=== PATIENT | male | born 1945 | race Caucasian/White ===

== ENCOUNTER 2019-11-23 16:21 | Inpatient (IN) ==
[2019-11-23] MEDS ORDERED: ACETAMINOPHEN 500 MG TAB PO PRN (16:32)
[2019-11-23] MEDS ORDERED: ONDANSETRON INJ 2 MG/ML 2 ML VIAL IV PRN (16:32)
[2019-11-23] MEDS ORDERED: PROMETHAZINE HCL 12.5 MG in SODIUM CHLORIDE 0.9% 50 ML IV PRN (16:32)
[2019-11-23] MEDS ORDERED: METOCLOPRAMIDE HCL INJ 5 MG/ML 2 ML VIAL IV PRN (16:32)
[2019-11-23] MEDS ORDERED: ONDANSETRON 4 MG OD TAB PO PRN (16:32)
[2019-11-23] MEDS ORDERED: HYDROmorphone INJ 0.5 MG/0.5 ML SYR IV PRN (16:32)
[2019-11-23] MEDS ORDERED: LORazepam 1 MG/2 ML VIAL IV PRN (16:32)
[2019-11-23] MEDS ORDERED: LORazepam 1 MG TAB PO PRN (16:32)
[2019-11-23] MEDS ORDERED: HYDROmorphone INJ 1 MG/ML SYRINGE IV PRN (16:32)
[2019-11-23] MEDS ORDERED: TRAMADOL HCL 50 MG TABLET PO PRN (16:32)
[2019-11-23] MEDS ORDERED: PATIENT'S HEIGHT AND/OR WEIGHT NEEDED SCH (17:00)
[2019-11-23] MEDS: LACTATED RINGER'S 1,000 ML IV SCH (17:15)
[2019-11-23 17:34] LABS: Albumin Level 3.7 gm/dl (3.4-5.0); BUN Creatinine Ratio 21.1 (10-20); Calcium 9.2 mg/dl (8.5-10.1); Creatinine Clr Calc Pharmacy 71.3 ml/min; Est GFR (African American) 99.5; Est GFR (Non-African American) 85.8; Hematocrit (blood only) 42.9 % (42-52); Hemoglobin 14.3 g/dL (14.0-18.0); Mean Corpuscular Hemoglobin 30.4 pg (25-34); Mean Corpuscular Hgb Conc 33.3 g/dL (32-36); Mean Corpuscular Volume 91.3 fL (80-100); Platelet Count 300 K/uL (130-400); Potassium 4.3 mmol/L (3.5-5.1); RDW Coefficient of Variation 13.6 % (11.5-14.5); RDW Standard Deviation 44.9 fL (36.4-46.3); White Blood Count 23.78 K/uL (4.8-10.8)
[2019-11-23 17:35] LABS: Basophils # (auto) 0.01 K/uL (0-0.2); Immature Granulocytes # (auto) 0.08 K/uL (0.00-0.02); Immature Granulocytes % (auto) 0.3 %; Lymphocytes # (auto) 1.72 K/uL (1.2-3.4); Lymphocytes % (auto) 7.2 %; Monocytes # (auto) 1.55 K/uL (0.11-0.59); Monocytes % (auto) 6.5 %; Neutrophils # (auto) 20.42 K/uL (1.4-6.5)
[2019-11-23 17:37] LABS: Albumin Globulin Ratio 0.9 (0.9-2); Bilirubin,Total 0.2 mg/dl (0.2-1); Total Protein 7.7 gm/dl (6.4-8.2)
[2019-11-23 17:51] LABS: Partial Thromboplastin Ratio 0.8; Prothrombin Time 10.7 Seconds (9.0-12.0)
--- NOTE | 2019-11-23 18:00 | Consultation ---
Date of Consultation November 23, 2019 Assessment & Plan (1) Cervical spinal cord compression: (2) Left arm weakness: Pt is 74 y/o M with PMH asthma, HTN, dyslipidemia, BPH, hypothyroidism, GERD, anxiety, osteoarthritis seen in medical consultation for preop eval. Pt with left shoulder pain and sudden onset of loss of control of left arm and left arm paresthesias. Seen in ER 11/22/2019 and had unremarkable MRI brain and had MRI cervical spine showing multilevel cervical spondylosis, moderate to severe multilevel central canal stenosis, moderate to severe multilevel neural foraminal stenosis and thinning of the mid cervical cord with small foci of myelomalacia. In ER patient had unremarkable labs including no leukocytosis and patient was given steroids. Patient saw Dr. Faria today and it is planned for ACDF tomorrow Yesterday No leukocytosis, today WBC: 23, pt received 10mg Decadron IV yesterday. No fever/chills, cough, urinary symptoms, N/V or other signs of infection Remaining labs unremarkable Obtain CXR EKG sinus rhythm with 1st degree AV block, no acute ST elevation, no significant change from prior EKG Holding aspirin, pt did have aspirin on 11/23/2019 Revised cardiac risk index score: 0. Would recommend proceeding with surgery Ortho spine on board Anesthesiology consult (3) HTN (hypertension): Continue lisinopril (4) Dyslipidemia: Continue rosuvastatin (5) Asthma: No signs of acute exacerbation Continue home inhalers (6) Hypothyroidism: Continue levothyroxine (7) BPH (benign prostatic hyperplasia): Continue tamsulosin, oxybutynin (8) Anxiety: Continue hydroxyzine as needed (9) GERD (gastroesophageal reflux disease): Continue PPI DVT Prophylaxis -SCDs Full Code as per discussion with pt Follows with Eryn Dunn at [facility] for routine care Pt was seen and care coordinated with Dr Mejia. See addendum Thank you for this consultation. We will follow the patient with you during their hospital stay. You can reach a member of the [facility] Hospitalist Team 02/02 via pager @ [phone]. Supervising Physician Co-Signing Physician Notes I, Dr. Ten Mejia, have seen and evaluate the patient with physician professional nursing assistant and agree with the assessment and plan and would like to comment that on physical exam General: no acute distress, speaking in full sentences Heart: regular rate Lungs: clear to auscultation bilaterally Abdomen: soft, nontender, positive bowel sounds Extremities: no limitations of motion of right upper extremity, left upper extremity the patient can move the hand and fingers but he is not able to lift from the left elbows or from left shoulder Assessment and Plan -primary reason for this consult was for pre-operative risk evaluation. by the Revised Cardiac Risk Index for Pre-Operative Risk, patient does not have high risk as the planned orthopedic procedure involves correcting cervical spinal cord compression as the cause of the left upper extremity weakness (this surgery does not involve intrathoracic or intra abdomen incision), and patient has no history of myocardial infarction or stroke, patient has good renal function, and no diabetes. patient breathing on room air. lungs sound clear to auscultation. Chest X ray ordered to rule out acute lung process. otherwise, orthopedic should be able to proceed with surgery if no objections from anesthesia counsult -agree with management of other medical conditions as documented by physician professional nursing assistant My colleague Dr. Ramos will be following the patient starting on 11/24/2019 History of Present Illness Requesting Physician: Dr Faria Reason for Consultation: Pre-op eval Attending Physician: Osito Faria, DO History of Present Illness Pt is 74 y/o M with PMH asthma, HTN, dyslipidemia, BPH, hypothyroidism, GERD, anxiety, osteoarthritis seen in medical consultation for preop eval. Patient with history neck pain and history right arm p aresthesias however several days ago started with left shoulder pain and sudden onset of loss of control of left arm and left arm paresthesias. Patient was seen in ER 11/22/2019 and had unremarkable MRI brain and had MRI cervical spine showing multilevel cervical spondylosis, greatest from C3-C4 through C5-C6 where there is moderate to severe multilevel central canal stenosis, moderate to severe multilevel neural foraminal stenosis and thinning of the mid cervical cord with small foci of myelomalacia. In ER patient had unremarkable labs including no leukocytosis and patient was given steroids. Patient saw Dr. Faria today and it is planned for ACDF tomorrow. Patient reports history of asthma and uses his albuterol inhaler approximately 3 times a week. He reports that he is fairly active and is able to work outside raking and chopping wood for several hours without any associated chest pain or shortness of breath. Denies fever/chills, diaphoresis, N/V/D/C, HAYNES, dizziness, syncope, vision changes, CP, SOB, orthopnea, palpitations, cough, sore throat, choking, otalgia, rhinorrhea, abdominal pain, extremity edema, rashes, urinary symptoms. No H/O CKD, Stroke, ND, known cardiac disease, diabetes. Denies history of problems with anesthesia in the past Allergies Allergy/AdvReac Type Severity Reaction Status Date / Time No Known Allergies Allergy Unverified 11/22/19 12:46 Home Medications Home Medications Medication Instructions Recorded Confirmed Type albuterol sulfate 1 puff INHALATION Q6H PRN 07/17/19 11/23/19 History ascorbic acid (vitamin C) 500 mg PO QAM 07/17/19 11/23/19 History aspirin [Aspirin Low Dose] 81 mg PO QAM 07/17/19 11/23/19 History budesonide-formoterol 2 puff INHALATION BID 07/17/19 11/23/19 History cyanocobalamin (vitamin B-12) 1,000 mcg PO QAM 07/17/19 11/23/19 History hydrocodone-acetaminophen 1 tab PO Q8H PRN 07/17/19 11/23/19 History levothyroxine 25 mcg PO DAILYBB 07/17/19 11/23/19 History lisinopril 5 mg PO QAM 07/17/19 11/23/19 History omeprazole 20 mg PO QAM 07/17/19 11/23/19 History oxybutynin chloride 5 mg PO HS 07/17/19 11/23/19 History rosuvastatin 40 mg PO HS 07/17/19 11/23/19 History sildenafil 100 mg PO DIRECTED PRN 07/17/19 11/23/19 History tamsulosin 0.4 mg PO HS 07/17/19 11/23/19 History trazodone 25 mg PO HS 07/17/19 11/23/19 History docusate sodium [Colace] 100 mg PO TID 11/22/19 11/23/19 History hydroxyzine HCl 50 mg PO BID PRN 11/22/19 11/23/19 History gabapentin 600 mg PO TID 11/23/19 11/23/19 History Patient History Medical History (Updated 11/23/19 @ 18:10 by Ritu Carnes PA-C) Anxiety Asthma BPH (benign prostatic hyperplasia) Dyslipidemia GERD (gastroesophageal reflux disease) HTN (hypertension) Hypothyroidism Surgical History (Updated 11/23/19 @ 18:10 by Ritu Carnes PA-C) History of carpal tunnel surgery Family History (Updated 11/23/19 @ 18:21 by Ritu Carnes PA-C) Other Coronary heart disease Hypertension Social History (Updated 11/23/19 @ 18:21 by Ritu Carnes PA-C) Preferred Language: [place] Beliefs That Will Affect Care: None Current Living Situation: Spouse Other Information That Helps Us Care for You: No Feels Safe at Home: Yes Safety Concerns: Feels Safe At This Time Smoking Status: Never smoker Hx Alcohol Use: Yes Alcohol type: beer Alcohol Intake Frequency Comment: 2 beers 1-3 times a week Hx Substance Use: No Review of Systems Review of Systems: All systems reviewed & are unremarkable except as noted in HPI & below Physical Exam Physical Exam: General: no distress, WDWN Head: normocephalic, atraumatic Eyes: PERRL, EOM's intact, conjunctiva non-injected, anicteric ENT: normal inspection external ears, nose, mucous membranes moist Neck: supple, trachea midline, non-tender to palpation Lungs: clear, no respiratory distress, no wheezing/rhonchi/rales CV: RRR, no murmur, no pretibial edema Abd: normal BS, soft, non-tender Ext: no cyanosis, no calf tenderness; LUE: pt unable to abduct, limited flexion of wrist, able to move fingers, left clinical investigator strength decreased from right, distal pulses palpable Neuro: A&O x 3, no focal deficits noted, normal affect Skin: warm, dry Results & Data ([facility]) Vital Signs (Past 12 Hours) Vital Signs Temp Pulse Resp BP Pulse Ox 11/23/19 17:03 36.7 C 86 17 161/75 H 91 Laboratory Results Short CBC 11/23/19 Range/Units 16:54 WBC 23.78 H (4.8-10.8) K/uL Hgb 14.3 (14.0-18.0) g/dL Hct 42.9 (42-52) % Plt Count 300 (130-400) K/uL BMP 11/23/19 16:54 Sodium 142 Potassium 4.3 Chloride 111 H Carbon Dioxide 23 BUN 18 Creatinine 0.85 Glucose 127 H Calcium 9.2 Liver Function 11/23/19 Range/Units 16:54 Total Bilirubin 0.2 (0.2-1) mg/dl AST 15 (15-37) U/L ALT 31 (12-78) U/L Alkaline Phosphatase 46 (45-117) U/L Albumin 3.7 (3.4-5.0) gm/dl
[2019-11-23] MEDS ORDERED: ALBUTEROL HFA 8 GM INHALER INH PRN (18:13)
--- NOTE | 2019-11-23 18:46 | XRay Report ---
XR chest 2V PA/lateral CLINICAL HISTORY: Preoperative chest COMPARISON STUDY: July 17, 2019 FINDINGS: The cardiac and mediastinal contours are normal. There is no evidence of focal pulmonary co nsolidation. There is no evidence of failure. No pleural effusions are visualized.[There is a stable opacity at the level of the right cardiophrenic angle, likely representing a fat pad or cardiac phren ic angle cyst. There are minimal basilar atelectatic changes. IMPRESSION: No active disease in the chest. ACT 112: Negative or not required by law. Electronically signed by: Andres Dill M.D. 11/23/2019 6:44 PM
[2019-11-23] MEDS: DOCUSATE SODIUM 100 MG CAP PO SCH (20:14)
[2019-11-23] MEDS: TRAZODONE HCL 50 MG TAB PO SCH (20:15)
[2019-11-23] MEDS: TAMSULOSIN HCL 0.4 MG CAP PO SCH (20:15)
[2019-11-23] MEDS: GABAPENTIN 600 MG TAB PO SCH (20:15)
[2019-11-23] MEDS: OXYBUTYNIN CHLORIDE 5 MG TAB PO SCH (20:15)
[2019-11-23] MEDS: ROSUVASTATIN CALCIUM 20 MG TAB PO SCH (20:15)
[2019-11-23] MEDS: OXYCODONE HCL IR 5 MG TAB (IMMEDIATE RELEASE) PO PRN (20:21)
[2019-11-23] MEDS ORDERED: DOCUSATE SODIUM 100 MG CAP PO SCH (21:00)
[2019-11-24] MEDS: OXYCODONE HCL IR 5 MG TAB (IMMEDIATE RELEASE) PO PRN (05:51)
[2019-11-24] MEDS: LEVOTHYROXINE SODIUM 25 MCG TABLET PO SCH (05:52)
[2019-11-24] MEDS: LACTATED RINGER'S 1,000 ML IV SCH (05:53)
[2019-11-24] MEDS ORDERED: CEFAZOLIN 2000MG 2,000 MG/15 ML SYR IV SCH (06:00)
[2019-11-24] MEDS: lisinopriL 5 MG TAB PO SCH (07:31)
[2019-11-24] MEDS: FLUTICASONE/VILANTEROL 200/25MCG 14 PUFFS/INHALER INH SCH (07:32)
[2019-11-24] MEDS: PANTOprazole 40 MG TAB PO SCH (07:33)
[2019-11-24] MEDS: CYANOCOBALAMIN 500 MCG TABLET (VITAMIN B-12) PO SCH (07:33)
[2019-11-24] MEDS: DOCUSATE SODIUM 100 MG CAP PO SCH ×3 (07:33→21:54)
[2019-11-24] MEDS: GABAPENTIN 600 MG TAB PO SCH ×3 (07:33→21:54)
--- NOTE | 2019-11-24 07:40 | History & Physical Report ---
Date of Service November 24, 2019 Assessment & Plan (1) Myelopathy concurrent with and due to spinal stenosis of cervical region: This time patient has advanced myelopathy and are recommending urgent anterior cervical corpectomy of C4 ACDF of C5-6. Risk benefits pros cons and alternatives were outlined in detail. We will try to have surgery range performed as soon as possible in light of his advanced neurologic deficits. Hopefully we can prevent permanent neurologic sequelae. Present on Admission?: Yes History of Present Illness Chief Complaint: Neck pain with arm numbness and weakness Primary Care Provider: Eryn Dunn PA-C This is a 74-year-old male with a tight chronic numbness in the bilateral upper extremities for several months progressive now to advanced weakness particular affecting the left upper extremity deltoid bicep tricep. This began over the weekend. He was doing quite a bit of work around his home and this may have exacerbated his symptoms. Allergies Allergy/AdvReac Type Severity Reaction Status Date / Time No Known Allergies Allergy Unverified 11/22/19 12:46 Home Medications Home Medications Medication Instructions Recorded Confirmed Type albuterol sulfate 1 puff INHALATION Q6H PRN 07/17/19 11/23/19 History ascorbic acid (vitamin C) 500 mg PO QAM 07/17/19 11/23/19 History aspirin [Aspirin Low Dose] 81 mg PO QAM 07/17/19 11/23/19 History budesonide-formoterol 2 puff INHALATION BID 07/17/19 11/23/19 History cyanocobalamin (vitamin B-12) 1,000 mcg PO QAM 07/17/19 11/23/19 History hydrocodone-acetaminophen 1 tab PO Q8H PRN 07/17/19 11/23/19 History levothyroxine 25 mcg PO DAILYBB 07/17/19 11/23/19 History lisinopril 5 mg PO QAM 07/17/19 11/23/19 History omeprazole 20 mg PO QAM 07/17/19 11/23/19 History oxybutynin chloride 5 mg PO HS 07/17/19 11/23/19 History rosuvastatin 40 mg PO HS 07/17/19 11/23/19 History sildenafil 100 mg PO DIRECTED PRN 07/17/19 11/23/19 History tamsulosin 0.4 mg PO HS 07/17/19 11/23/19 History trazodone 25 mg PO HS 07/17/19 11/23/19 History docusate sodium [Colace] 100 mg PO TID 11/22/19 11/23/19 History hydroxyzine HCl 50 mg PO BID PRN 11/22/19 11/23/19 History gabapentin 600 mg PO TID 11/23/19 11/23/19 History Past Med/Surg History Medical History (Updated 11/24/19 @ 07:39 by Osito Faria DO) Anxiety Asthma BPH (benign prostatic hyperplasia) Dyslipidemia GERD (gastroesophageal reflux disease) HTN (hypertension) Hypothyroidism Surgical History (Updated 11/23/19 @ 18:10 by Ritu Carnes PA-C) History of carpal tunnel surgery Family History (Updated 11/23/19 @ 18:21 by Ritu Carnes PA-C) Other Coronary heart disease Hypertension Social History (Updated 11/23/19 @ 18:21 by Ritu Carnes PA-C) Preferred Language: Cook Islander Beliefs That Will Affect Care: None Current Living Situation: Spouse Other Information That Helps Us Care for You: No Feels Safe at Home: Yes Safety Concerns: Feels Safe At This Time Smoking Status: Never smoker Hx Alcohol Use: Yes Alcohol type: beer Alcohol Intake Frequency Comment: 2 beers 1-3 times a week Hx Substance Use: No Physical Exam Physical Exam: 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 He exhibits almost complete absence of left deltoid and biceps function. Triceps is a 3/5. He has reasonable grasp. He has full function of the right upper extremity. There is sensory deficits to bilateral upper extremities. He does exhibit balance disturbance and is unable to heel and toe walk. He has bilateral Trey signs and brisk lower extremity reflexes. Heart is regular rate and rhythm Patient is alert and oriented Lungs clear to auscultation Results & Data Vital Signs (Past 12 Hours) Vital Signs Temp Pulse Resp BP Pulse Ox 11/24/19 07:26 36.5 C 63 18 150/78 H 97 11/23/19 23:09 36.5 C 73 16 137/74 96 Diagnostic Findings MRI of the cervical spine demonstrate severe spinal stenosis at C3-4 C4-5 and C5-6 with evidence of myelomalacia. Code Status & VTE Plan VTE Prophylaxis Plan VTE Prophylaxis will be ordered: Yes
--- NOTE | 2019-11-24 09:16 | Hospitalist Progress Note ---
Date of Service November 24, 2019 Assessment & Plan (1) Myelopathy concurrent with and due to spinal stenosis of cervical region: Surgical management per Ortho Spine. (2) HTN (hypertension): Continue lisinopril. (3) Asthma: Pulmonary status stable. Albuterol PRN. Incentive spirometry postop. (4) GERD (gastroesophageal reflux disease): Continue PPI. (5) Dyslipidemia: Continue rosuvastatin. (6) Hypothyroidism: Continue levothyroxine. (7) BPH (benign prostatic hyperplasia): Continue tamsulosin. Watch for urinary retention postop. (8) Leukocytosis: WBC 23,780 yesterday. No apparent infection. Probably due to steroids received in ED 11/21. Follow. (9) DVT prophylaxis: Per Ortho protocol. (10) Encounter for consultation: Thank you for this consultation. We will follow the patient with you during their hospital stay. My cell # is [phone]. You can reach a member of the [facility] Medicine Team 02/02 via pager @ [phone]. Admission and Anticipated Discharge Date Admission Date: November 23, 2019 Subjective Recheck for medical management. Patient seen in their room around 0905. Persistent pain & weakness LUE. Scheduled to go to OR today. Review of Systems: Constitutional- no fever. Cardiac- no chest pain. Pulmonary- no cough or SOB. GI- no nausea, vomiting, diarrhea, melena, hematochezia. - no urinary symptoms. Otherwise, as noted above. Physical Exam Constitutional: no acute distress Respiratory: no respiratory distress Auscultation: lungs clear to auscultation bilaterally Cardiovascular: Rate/Rhythm: regular rate and regular rhythm Heart Sounds: no gallop, no murmur and no cardiac rub Vessels: no JVD Extremities: no calf tenderness and no edema Gastrointestinal (Abdomen): normal bowel sounds, soft, nontender, no hepatosplenomegaly Skin: no rashes, warm and dry Neurologic: LUE weakness Psychiatric: Orientation: alert and oriented x 3 Results & Data Results & Data ([facility]) Vital Signs (Past 12 Hours) Vital Signs Temp Pulse Resp BP Pulse Ox 11/24/19 07:26 36.5 C 63 18 150/78 H 97 11/23/19 23:09 36.5 C 73 16 137/74 96
[2019-11-24] MEDS ORDERED: PROPOFOL IV EMULSION 10 MG/ML 20 ML VIAL IV ONE (09:29)
[2019-11-24] MEDS ORDERED: LIDOCAINE HCL 2% 2 ML VIAL/AMP(20MG/ML) INFIL ONE (09:29)
[2019-11-24] MEDS ORDERED: ONDANSETRON INJ 2 MG/ML 2 ML VIAL ONE (09:29)
[2019-11-24] MEDS ORDERED: ROCURONIUM BROMIDE 10 MG/ML 5 ML VIAL ONE (09:29)
[2019-11-24] MEDS ORDERED: MIDAZOLAM HCL 1 MG/ML 2ML VIAL ONE (09:30)
[2019-11-24] MEDS ORDERED: fentaNYL citrate 100 MCG/2 ML VIAL ONE ×2 (09:30→13:30)
--- NOTE | 2019-11-24 09:43 | Anesthesiology Consultation ---
Date of Service November 24, 2019 Assessment & Plan (1) Encounter for pre-operative examination: Chart Review Chart Review: Acceptable Risk for Surgery and Patient NOT seen in Pre Admission Testing Consults Requested none Hospital medicine consult 11/22/2019: EKG sinus rhythm with 1st degree AV block, no acute ST elevation, no significant change from prior EKG Holding aspirin, pt did have aspirin on 11/23/2019 Revised cardiac risk index score: 0. Would recommend proceeding with surgery History Surgery Operation Date: 11/24/19 11:45 Proposed Procedures p C4 Anterior Cervical Corpectomy; C5-C6 Anterior Cervical Discectomy, Spinal Cord Monitoring - Osito Faria DO Height/Weight Height: 5 ft 7 in Weight: 74.8 kg Allergies Allergy/AdvReac Type Severity Reaction Status Date / Time No Known Allergies Allergy Unverified 11/24/19 11:15 Medications Home Medications Medication Instructions Recorded Confirmed Last Taken albuterol sulfate 1 puff INHALATION Q6H PRN 07/17/19 11/23/19 Unknown ascorbic acid (vitamin C) 500 mg PO QAM 07/17/19 11/23/19 11/23/19 aspirin [Aspirin Low Dose] 81 mg PO QAM 07/17/19 11/23/19 11/23/19 budesonide-formoterol 2 puff INHALATION BID 07/17/19 11/23/19 11/23/19 cyanocobalamin (vitamin B-12) 1,000 mcg PO QAM 07/17/19 11/23/19 11/23/19 hydrocodone-acetaminophen 1 tab PO Q8H PRN 07/17/19 11/23/19 11/23/19 levothyroxine 25 mcg PO DAILYBB 07/17/19 11/23/19 11/23/19 lisinopril 5 mg PO QAM 07/17/19 11/23/19 11/23/19 omeprazole 20 mg PO QAM 07/17/19 11/23/19 11/23/19 oxybutynin chloride 5 mg PO HS 07/17/19 11/23/19 11/22/19 rosuvastatin 40 mg PO HS 07/17/19 11/23/19 11/22/19 sildenafil 100 mg PO DIRECTED PRN 07/17/19 11/23/19 Unknown tamsulosin 0.4 mg PO HS 07/17/19 11/23/1911/21/20 trazodone 25 mg PO HS 07/17/19 11/23/19 11/22/19 docusate sodium [Colace] 100 mg PO TID 11/22/19 11/23/19 11/23/19 hydroxyzine HCl 50 mg PO BID PRN 11/22/19 11/23/19 11/22/19 gabapentin 600 mg PO TID 11/23/19 11/23/19 11/23/19 Active Medications Generic Name Dose Route Start Last Admin Trade Name Freq PRN Reason Stop Dose Admin Cyanocobalamin 1,000 mcg 11/24/19 09:00 11/24/19 07:33 Vitamin B-12 PO 12/24/19 08:59 Not Given QAM JUN Docusate Sodium 100 mg 11/23/19 21:00 11/24/19 07:33 Colace PO 12/23/19 20:59 Not Given TID JUN Fluticasone/Vilanterol 1 puffs 11/24/19 09:00 11/24/19 07:32 Breo Ellipta 200/25 Mcg Inh INH 12/24/19 08:59 1 puffs DAILY JUN Administration Gabapentin 600 mg 11/23/19 21:00 11/24/19 07:33 Neurontin PO 12/23/19 20:59 Not Given TID JUN Hydroxyzine HCl 50 mg 11/23/19 18:13 11/23/19 21:50 Vistaril PO 12/23/19 18:12 50 mg BID PRN Administration Anxiety Lactated Ringer's 1,000 mls @ 75 mls/hr 11/23/19 16:45 11/24/19 05:53 Lr IV 12/23/19 16:44 75 mls/hr .[id number] JUN Administration Levothyroxine Sodium 25 mcg 11/24/19 06:30 11/24/19 05:52 Synthroid PO 12/24/19 06:29 25 mcg DAILYBB JUN Administration Lisinopril 5 mg 11/24/19 09:00 11/24/19 07:31 Zestril PO 12/24/19 08:59 5 mg QAM JUN Administration Oxybutynin Chloride 5 mg 11/23/19 21:00 11/23/19 20:15 Ditropan PO 12/23/19 20:59 5 mg HS JUN Administration Oxycodone HCl 5 - 10 mg 11/23/19 16:32 11/24/19 05:51 Roxicodone Immediate Rel PO 12/07/19 16:31 10 mg Q4H PRN Administration Moderate-Severe Pain Pantoprazole Sodium 40 mg 11/24/19 09:00 11/24/19 07:33 Protonix PO 12/24/19 08:59 Not Given QAM JUN Rosuvastatin Calcium 40 mg 11/23/19 21:00 11/23/19 20:15 Crestor PO 12/23/19 20:59 40 mg HS JUN Administration Tamsulosin HCl 0.4 mg 11/23/19 21:00 11/23/19 20:15 Flomax PO 12/23/19 20:59 0.4 mg HS JUN Administration Trazodone HCl 25 mg 11/23/19 21:00 11/23/19 20:15 Desyrel PO 12/23/19 20:59 25 mg HS JUN Administration NPO Date Last Intake of Fluids: 11/23/19 Time Last Intake of Fluids: 23:59 Date Last Intake of Solids: 11/23/19 Time Last Intake of Solids: 23:59 Past Medical History Medical History Anxiety Asthma BPH (benign prostatic hyperplasia) Dyslipidemia GERD (gastroesophageal reflux disease) HTN (hypertension) Hypothyroidism Exercise / Class Metabolic Activity II 4-5 Yardwork/Stairs/Walk up hill Past Family History Family History Other Coronary heart disease Hypertension Past Surgical History Surgical History History of carpal tunnel surgery Past Anesthesia History No Hx of Anesthesia Complications and No Family Hx of Anesthesia Complications History of PONV No Hx of PONV and No Hx of Motion Sickness Social History Smoking Status: Never smoker Do You Dip or Chew Tobacco: No Hx Alcohol Use: Yes Alcohol type: beer alcohol intake frequency: a few times a week Hx Substance Use: No Physical Exam Vital Signs Last Vital Signs Temp 37 C 11/24/19 11:10 Pulse 69 11/24/19 11:10 Resp 20 11/24/19 11:10 BP 160/87 H 11/24/19 11:10 Pulse Ox 95 11/24/19 11:10 Testing Laboratory Results 11/23/19 16:54 11/23/19 16:54 PT 10.7 Seconds (9.0-12.0) 11/23/19 16:54 INR 1.0 (0.9-1.1) 11/23/19 16:54 APTT 23.0 Seconds (21.0-31.0) 11/23/19 16:54 Electrocardiogram Date: 11/23/19 Findings: + NSR @ (87) Sinus rhythm with 1st degree A-V block Possible Left atrial enlargement Incomplete right bundle branch block Septal infarct , age undetermined Abnormal ECG When compared with ECG of 17-JUL-2019 21:29, Septal infarct is now Present Chest X-Ray Date: 11/23/19 XR chest 2V PA/lateral CLINICAL HISTORY: Preoperative chest COMPARISON STUDY: July 17, 2019 FINDINGS: The cardiac and mediastinal contours are normal. There is no evidence of focal pulmonary consolidation. There is no evidence of failure. No pleural effusions are visualized.[There is a stable opacity at the level of the right cardiophrenic angle, likely representing a fat pad or cardiac phrenic angle cyst. There are minimal basilar atelectatic changes. IMPRESSION: No active disease in the chest. Cervical Spine Date: 11/23/19 MRI C spine: 11/22/2019. IMPRESSION: 1. Multilevel cervical spondylosis as above, greatest from C3-C4 through C5-C6 where there is moderate to severe multilevel central canal stenosis. 2. There is moderate to severe multilevel neural foraminal stenosis. See discussion for detailed level by level analysis. 3. Degenerative disc disease with associated endplate edema at C3-C4 and C5-C6. 4. There is thinning of the mid cervical cord with small foci of myelomalacia, likely related to severe chronic spinal stenosis. MRI brain: 11/22/2019 IMPRESSION: No acute intracranial abnormality.
--- NOTE | 2019-11-24 11:30 | History & Physical Bridge Note ---
Date of Service November 24, 2019 History & Physical Bridge Note I have examined the patient, reviewed the History & Physical and in the interval since the performance of the History & Physical I have noted the following changes of clinical significance: no changes noted
[2019-11-24] MEDS ORDERED: BACITRACIN INJ 50,000 UNIT VIAL ONE (12:13)
[2019-11-24] MEDS ORDERED: ONDANSETRON INJ 2 MG/ML 2 ML VIAL IV PRN ×2 (12:17→16:53)
[2019-11-24] MEDS ORDERED: ePHEDrine sulfate 50 MG/ML AMP IV PRN (12:17)
[2019-11-24] MEDS ORDERED: fentaNYL citrate 100 MCG/2 ML VIAL IV PRN (12:17)
[2019-11-24] MEDS ORDERED: ATROPINE SULFATE 0.1 MG/ML 10ML SYR IV PRN (12:17)
[2019-11-24] MEDS ORDERED: HYDROmorphone INJ 2 MG/ML SYR/VIAL ONE (13:48)
[2019-11-24] MEDS ORDERED: NEOSTIGMINE METHYLSULFATE 5 MG/5 ML SYR ONE (14:58)
[2019-11-24] MEDS ORDERED: GLYCOPYRROLATE 0.2 MG/ML VIAL ONE (14:58)
[2019-11-24] MEDS ORDERED: FLOSEAL HEMOSTATIC MATRIX 10ML TOP ONE (15:03)
--- NOTE | 2019-11-24 15:10 | Operative Report ---
Post Operative Report Pre & Post Diagnosis Operation Date: 11/24/19 11:45 Pre-Op Diagnosis: Spinal stenosis at C3-4 C4-5 and C5-6 with evidence of myelomalacia Post-Op Diagnosis: Spinal stenosis at C3-4 C4-5 and C5-6 with evidence of myelomalacia I identified the patient and participated in the time-out.: Yes Procedure Operation Date: 11/24/19 11:45 Actual Procedures #1 anterior cervical corpectomy with bilateral foraminotomies C4. #2 anterior cervical discectomy with bilateral foraminotomies C5-C6. #3 anterior cervical arthrodesis C3-C5 and C5-C6. #4 placement of peek cage 25 mm in height C3-C5 and 8 mm of C5-C6. #5 placement of locally harvested morselized autograft combined with DBM within the interbody cages #6 placement of 5 complete screws from C3-C6. Surgeon Osito Faria, DO Timber Spotter Oly Palma Estimated Blood Loss 25 Findings Consistent with Post-Op Diagnosis Specimens None Indications This is a 74-year-old male presents to my office yesterday with marked decline in neurologic status particularly affecting the left upper extremity. He had dense weakness. Subsequently he was admitted for urgent surgical decompression. Description of Procedure Patient was met with preoperatively case discussed all questions addressed. At that point patient was taken back to the operative suite and after undergoing successful intubation placed in a supine position the Madhav table head Mayo head setter. All bony prominences well-padded eyes inspected to ensure no external pressure placed upon them. This point the anterior cervical spine was prepped and draped in normal sterile fashion. With the assistance of fluoroscopy identified the see 4 5 displacement transverse incision was placed along the right anterior aspect of the cervical spine overlying this region. Sharp dissection with the assistance of bipolar electrocautery performed down to and exposing the anterior cervical spine from C2-3 to C6. Self-retaining retractors placed. Then performed a complete discectomy of C3-4 out to the uncovertebral joints bilaterally followed by C4-5. [place] distracting pins were then placed in C3 and C5 to distract across the C4 vertebral body. A complete corpectomy was then performed including removal of all posterior annular fibers longitudinal ligament bilateral foraminotomies to address all compression. Endplates were then burred to subcortical bleeding bone and a 25 mm peek cage filled with locally harvested morselized autograft combined with DBM tapped in position. The distracting apparatus was removed and I proceeded to the C5-6 level again complete discectomy performed out to the uncovertebral's bilaterally. [place] distracting pins again utilized. I did remove all posterior annular fibers longitudinal ligament and bilateral foraminotomies performed. Endplates were then burred to subcortical bleeding bone and an 8 mm peek cage filled with locally harvested morselized autograft combined with DBM tapped in position. All distracting apparatus was removed all anterior osteophytes burred to a smooth cortical surface and a kline plate and screws applied with the assistance of fluoroscopy. Incision was then copiously irrigated explored to ensure no damage to surrounding structures remaining bleeding. A 10 round MATT drain was inserted. The incision was then closed with 2 Vicryl in the fashion of 4 Monocryl for final skin closure. Steri-Strip sterile dressings placed. Patient will continue PACU stable addition. Please note spinal cord monitoring was utilized that the procedure and no changes noted. Lastly Oly Palma was present at the entire procedure involved the patient positioning complex portions of the surgery and final skin closure. I attest to the content of the Intraoperative Record and any orders documented therein. Any exceptions are noted below.
--- NOTE | 2019-11-24 15:34 | Fluoroscopy Report ---
FL cervical 2-3V CLINICAL HISTORY: 74 years-old Male presenting with ACDF C5-C6/CORPECTOMY 4. TECHNIQUE: 2 fluoroscopic image(s) recorded as part of an intraoperative procedure. COMPARISON: MR from 11/22/2019. FINDINGS/IMPRESSION: There has been interval anterior cervical discectomy and fusion of C3-C6 and C4 corpectomy. Surgical sponge and support devices project over the anterior neck soft tissues. Normal anatomic alignment of the cervical spine. Please see surgical report for further details. Fluoroscopy dosage (mGy): 1.71. Fluoroscopy time: 12.0 seconds. Number or time of high level fluoroscopy (HLF), digital spot, or digital subtraction images: 0. ACT 112: Negative or not required by law. Electronically signed by: Fredo Browning M.D. 11/24/2019 3:33 PM
--- NOTE | 2019-11-24 16:00 | Anesthesiology Progress Note ---
Date of Service November 24, 2019 Anesthesia Post Procedure Vital Signs Vital Signs: Temp Pulse Pulse Resp BP BP Pulse Ox 11/24/19 15:50 58 L 15 173/90 H 98 11/24/19 15:43 36 C L 55 L 16 183/94 H 98 11/24/19 11:10 37 C 69 20 160/87 H 95 11/24/19 07:26 36.5 C 63 18 150/78 H 97 11/23/19 23:09 36.5 C 73 16 137/74 96 11/23/19 17:03 36.7 C 86 17 161/75 H 91 Pain Intensity Left Arm: Pain Intensity: 7 Transfer of Care Handoff Completed per policy Notes Mental Status: alert / awake / arousable and participated in evaluation Patient Amnestic to Procedure: Yes Nausea / Vomiting: adequately controlled Pain: adequately controlled Airway Patency, RR, SpO2: stable & adequate BP & HR: stable & adequate Hydration State: stable & adequate Anesthetic Complications: no major complications apparent and Pt Satisfied with anesthetic care
[2019-11-24] MEDS ORDERED: HYDROmorphone INJ 1 MG/ML SYRINGE IV PRN (16:53)
[2019-11-24] MEDS ORDERED: LORazepam 0.5 MG/1 ML VIAL IV PRN (16:53)
[2019-11-24] MEDS ORDERED: RACEPINEPHRINE 2.25% NEBU SOLN 0.5 ML VIAL INH PRN (16:53)
[2019-11-24] MEDS ORDERED: OXYCODONE HCL IR 5 MG TAB (IMMEDIATE RELEASE) PO PRN (16:53)
[2019-11-24] MEDS ORDERED: ACETAMINOPHEN 1,000 MG/100 ML VIAL IV PRN (16:53)
[2019-11-24] MEDS ORDERED: MAGNESIUM HYDROXIDE SUSP 30 ML UDC PO PRN (16:53)
[2019-11-24] MEDS ORDERED: PROMETHAZINE HCL 12.5 MG in SODIUM CHLORIDE 0.9% 50 ML IV PRN (16:53)
[2019-11-24] MEDS ORDERED: ACETAMINOPHEN 500 MG TAB PO PRN (16:53)
[2019-11-24] MEDS ORDERED: FAMOTIDINE 20 MG TAB PO PRN (16:53)
[2019-11-24] MEDS ORDERED: DO NOT ADMINISTER PNEUMOCOCCAL VACCINE PRN (16:53)
[2019-11-24] MEDS ORDERED: LORazepam 0.5 MG TAB PO PRN (16:53)
[2019-11-24] MEDS ORDERED: NALOXONE HCL 0.4 MG/1 ML VIAL/CARP IV PRN (16:53)
[2019-11-24] MEDS ORDERED: HYDROmorphone INJ 0.5 MG/0.5 ML SYR IV PRN (16:53)
[2019-11-24] MEDS ORDERED: METOCLOPRAMIDE HCL INJ 5 MG/ML 2 ML VIAL IV PRN (16:53)
[2019-11-24] MEDS ORDERED: DO NOT ADMINISTER FLU VACCINE PRN (16:53)
[2019-11-24] MEDS ORDERED: ONDANSETRON 4 MG OD TAB PO PRN (16:53)
[2019-11-24] MEDS ORDERED: SOD PHOSPHATE/SOD BIPHOSPHATE ENEMA 132 ML BTL PR PRN (16:53)
[2019-11-24] MEDS ORDERED: TRAMADOL HCL 50 MG TABLET PO PRN (16:53)
[2019-11-24] MEDS ORDERED: ALUMINUM/MAGNESIUM SUSP 30 ML UDC PO PRN (16:53)
[2019-11-24] MEDS ORDERED: DEXAMETHASONE SOD PHOSPHATE 8 MG in SYRINGE 0 ML IV PRN (16:53)
[2019-11-24] MEDS: SODIUM CHLORIDE 0.9% 1000ML 1,000 ML IV SCH (17:42)
[2019-11-24] MEDS: CEFAZOLIN 2000MG 2,000 MG/15 ML SYR IV SCH (20:36)
[2019-11-24] MEDS ORDERED: DOCUSATE SODIUM/SENNA 50/8.6MG TAB PO SCH (21:00)
[2019-11-24] MEDS: DEXAMETHASONE SOD PHOSPHATE 8 MG in SYRINGE 0 ML IV SCH (21:53)
[2019-11-24] MEDS: OXYBUTYNIN CHLORIDE 5 MG TAB PO SCH (21:54)
[2019-11-24] MEDS: TAMSULOSIN HCL 0.4 MG CAP PO SCH (21:54)
[2019-11-24] MEDS: ROSUVASTATIN CALCIUM 20 MG TAB PO SCH (21:55)
[2019-11-24] MEDS: TRAZODONE HCL 50 MG TAB PO SCH (21:59)
--- NOTE | 2019-11-24 22:18 | Electrocardiogram Report ---
Test Reason : Blood Pressure : / mmHG Vent. Rate : 087 BPM Atrial Rate : 087 BPM P-R Int : 230 ms QRS Dur : 102 ms QT Int : 358 ms P-R-T Axes : 053 -18 007 degrees QTc Int : 430 ms Sinus rhythm with 1st degree A-V block Possible Left atrial enlargement Incomplete right bundle branch block Septal infarct , age undetermined Abnormal ECG When compared with ECG of 17-JUL-2019 21:29, Septal infarct is now Present Confirmed by Kush Shultz ([id number]) on 11/24/2019 10:18:14 PM Referred By: Osito Faria Confirmed By:Kush Shultz
[2019-11-25] MEDS: SODIUM CHLORIDE 0.9% 1000ML 1,000 ML IV SCH (03:07)
[2019-11-25] MEDS: CEFAZOLIN 2000MG 2,000 MG/15 ML SYR IV SCH (03:45)
[2019-11-25] MEDS ORDERED: COUGH DROP (SUGAR FREE) LOZ 24 LOZ/1 BOX BUCCAL ONE (03:53)
[2019-11-25] MEDS: LEVOTHYROXINE SODIUM 25 MCG TABLET PO SCH (05:54)
[2019-11-25] MEDS: DEXAMETHASONE SOD PHOSPHATE 8 MG in SYRINGE 0 ML IV SCH ×2 (05:54→11:56)
[2019-11-25 06:14] LABS: Basophils # (auto) 0.01 K/uL (0-0.2); Basophils % (auto) 0.1 %; Hematocrit (blood only) 40.1 % (42-52); Hemoglobin 13.1 g/dL (14.0-18.0); Immature Granulocytes # (auto) 0.04 K/uL (0.00-0.02); Immature Granulocytes % (auto) 0.3 %; Lymphocytes % (auto) 7.2 %; Mean Corpuscular Hemoglobin 29.8 pg (25-34); Mean Corpuscular Hgb Conc 32.7 g/dL (32-36); Mean Corpuscular Volume 91.3 fL (80-100); Mean Platelet Volume 10.3 fL (7.4-10.4); Monocytes # (auto) 0.52 K/uL (0.11-0.59); Monocytes % (auto) 4.1 %; Neutrophils # (auto) 11.09 K/uL (1.4-6.5); Neutrophils % (auto) 88.3 %; Platelet Count 245 K/uL (130-400); RDW Coefficient of Variation 13.5 % (11.5-14.5); RDW Standard Deviation 45.1 fL (36.4-46.3); Red Blood Count 4.39 M/uL (4.7-6.1); White Blood Count 12.56 K/uL (4.8-10.8)
[2019-11-25 06:50] LABS: BUN Creatinine Ratio 17.5 (10-20); Calcium 8.4 mg/dl (8.5-10.1); Creatinine Clr Calc Pharmacy 68.9 ml/min; Est GFR (African American) 98.1; Est GFR (Non-African American) 84.6; Potassium 3.8 mmol/L (3.5-5.1)
[2019-11-25] MEDS: PANTOprazole 40 MG TAB PO SCH (08:26)
[2019-11-25] MEDS: CYANOCOBALAMIN 500 MCG TABLET (VITAMIN B-12) PO SCH (08:26)
[2019-11-25] MEDS: lisinopriL 5 MG TAB PO SCH (08:26)
[2019-11-25] MEDS: DOCUSATE SODIUM 100 MG CAP PO SCH ×2 (08:27→11:56)
[2019-11-25] MEDS: GABAPENTIN 600 MG TAB PO SCH ×2 (08:27→11:56)
[2019-11-25] MEDS ORDERED: ASCORBIC ACID 500 MG TAB PO SCH (09:00)
[2019-11-25] MEDS: FLUTICASONE/VILANTEROL 200/25MCG 14 PUFFS/INHALER INH SCH (09:44)
--- NOTE | 2019-11-25 10:05 | Discharge Summary ---
Date of Service November 25, 2019 Admission HPI Per Admitting Provider This is a 74-year-old male with a tight chronic numbness in the bilateral upper extremities for several months progressive now to advanced weakness particular affecting the left upper extremity deltoid bicep tricep. This began over the weekend. He was doing quite a bit of work around his home and this may have exacerbated his symptoms. Principal Diagnosis Cervical spinal stenosis with myelopathy Discharge Data Allergies Allergy/AdvReac Type Severity Reaction Status Date / Time No Known Allergies Allergy Unverified 11/24/19 11:15 Consultations 11/23/19 16:32 Consult Anesthesiology Routine Consult Internal Medicine Routine Procedures Performed Operation Date: 11/24/19 11:45 Actual Procedures p C4 Anterior Cervical Corpectomy; C5-C6 Anterior Cervical Discectomy, with Spinal Cord Monitoring - Osito Faria DO Ordered Studies 11/24/19 10:00 FL cervical 2-3V Routine FL fluoroscopy <1hr Routine Hospital Course (1) Myelopathy concurrent with and due to spinal stenosis of cervical region: Patient underwent multilevel anterior cervical decompression and fusion tolerated this well second orthopedic for postoperative. Postop day 1 he was swallowing well no hoarseness. MATT drain decreasing probably. Still marked motor deficits affecting left upper extremity however his numbness seems to be improving. Patient was subsequently discharged home. Discharge orders instru ctions from the chart for further review. Total Time Total Time Spent Total Time Spent (In Minutes): 20 minutes Discharge Plan Discharge Items Patient Disposition: Home - Self-Care Reason For Visit: CERVICAL MYORADICULOPATHY WITH WEAKNESS Discharge Diagnosis: Cervical spinal stenosis with myeloradiculopathy Activity: As commented below Non-emergency contact: Primary Care Provider Call non-emergency contact if: you have any medication questions Follow-up/Referrals: Eryn Dunn PA-C [Primary Care Provider] - Diet: Regular Addtl Attending Provider Instructions: ACTIVITY RECOMMENDATIONS: SELF CARE INSTRUCTIONS AFTER CERVICAL FUSIONS 1. No smoking. Smoking drastically decreases the chance of a solid fusion. 2. No bending, lifting more than 5 pounds, or twisting (roll like a log when turning in bed). 3. You may shower 3 days after surgery. Thoroughly dry wound. Do not soak in the tub. 4. Cervical collar: Must be worn at all times including sleeping. You may remove the brace only to bath, eat and if you are sitting in a recliner. 5. Please walk as much as you can for exercise. Gradually increase the distance that you walk as your endurance increases. SPECIAL CARE INSTRUCTIONS: VERY IMPORTANT TO READ AND REVIEW A. Do not take any anti-inflammatory medications (i.e. Indocin, Advil, Aspirin, Naprosyn, Aleve, Motrin, etc.) as these may inhibit the chance of a solid fusion. Tylenol is okay to take. B. Your surgical incision has been closed with a cosmetic suture under the skin that will dissolve in about 6 weeks. In 14 days, you can use a pair of clean scissors and cut the suture that is left outside of the skin at the ends of your incision. C. Complications are uncommon, but please contact us if you have any signs or symptoms of: 1. wound infection (fever higher than 102.5 degrees F, redness, separation of wound, drainage, or increasing pain from the incision) 2. blood clots in legs (pain, swelling, redness and warmth in legs) 3. urinary tract infection (fever higher than 102.5 degrees, burning upon urination or increased frequency of urination) 4. nerve problems (inability to walk on your toes or heels, numbness, loss of bowel or bladder control) 5. any other symptoms that concern you. D. Please call the office at if you have any concerns or questions about your operation or recovery. MANAGING PAIN AFTER SPINAL SURGERY 1. Narcotic medication is intended for short-term use and will be provided for surgical pain. Surgical pain usually lasts for a period of 4-6 weeks. Narcotic medication includes Percocet, Vicodin, Darvocet, Tylenol #3 or Lortab. 2. Longer-term pain is more appropriately treated with non-narcotic medication such as Tylenol ES. 3. Muscle spasm is not appropriately treated with narcotics. Muscle relaxers such as Soma, Flexeril or Skelaxin can be used along with Tylenol ES. 4. Remember that we all live with some "aches and pains". This is not unusual or uncommon after an injury or as we get older. 5. We will provide appropriate medication within the normal guidelines of their prescribed use. We will also be very cautious and aware of potential abuse and extended duration of patients' medication needs. 6. Please allow 2-3 days to process refills. Prescriptions will not be mailed but must be picked up at the office. FOLLOW UP VISIT: Keep your scheduled follow-up appointment. Any questions, please call the office at . Pending Studies at Discharge: No Stand-Alone Forms: My [facility], Smoking Cessation Medications and DC Order Prescriptions: New tramadol 50 mg tablet 50 mg PO Q6H PRN (Reason: pain, moderate) Qty: 15 RF: 0 oxycodone 5 mg tablet 5 mg PO Q6H PRN (Reason: pain, severe) Qty: 15 RF: 0 Continued hydroxyzine HCl 50 mg tablet 50 mg PO BID PRN (Reason: Anxiety) RF: 0 docusate sodium [Colace] 100 mg Capsule 100 mg PO TID RF: 0 trazodone 50 mg Tablet 25 mg PO HS RF: 0 cyanocobalamin (vitamin B-12) 1,000 mcg Tablet 1,000 mcg PO QAM RF: 0 aspirin [Aspirin Low Dose] 81 mg Tablet,Delayed Release (Dr/Ec) 81 mg PO QAM RF: 0 sildenafil 100 mg Tablet 100 mg PO DIRECTED PRN (Reason: Erectile Dysfunction) RF: 0 levothyroxine 25 mcg Tablet 25 mcg PO DAILYBB RF: 0 ascorbic acid (vitamin C) 500 mg Tablet 500 mg PO QAM RF: 0 tamsulosin 0.4 mg Capsule 0.4 mg PO HS RF: 0 omeprazole 20 mg Capsule,Delayed Release(Dr/Ec) 20 mg PO QAM RF: 0 lisinopril 5 mg Tablet 5 mg PO QAM RF: 0 albuterol sulfate 90 mcg/actuation Hfa Aerosol Inhaler 1 puff INHALATION Q6H PRN (Reason: Wheezing and SOB) RF: 0 oxybutynin chloride 5 mg Tablet 5 mg PO HS RF: 0 rosuvastatin 40 mg Tablet 40 mg PO HS RF: 0 budesonide-formoterol 160-4.5 mcg/actuation Hfa Aerosol Inhaler 2 puff INHALATION BID RF: 0 gabapentin 600 mg tablet 600 mg PO TID RF: 0 Discontinued hydrocodone-acetaminophen 5-325 mg Tablet 1 tab PO Q8H PRN (Reason: Pain) RF: 0 Discharge Orders: Discharge Order (Routine); Ordered 11/25/19 Ordered By: Osito Faria Admission Data Admit Date/Time: 11/23/19 16:21 Attending Provider: Osito Faria Admit Provider: Osito Faria Primary Care Provider: Eryn Dunn Other Providers: Ten Mejia ; Luigi Castro ; Ray Cruz
--- NOTE | 2019-11-25 11:20 | Hospitalist Progress Note ---
Date of Service November 25, 2019 Assessment & Plan (1) Myelopathy concurrent with and due to spinal stenosis of cervical region: POD # 1. Surgical management per Ortho Spine. (2) HTN (hypertension): Continue lisinopril. (3) Asthma: Pulmonary status stable. Albuterol PRN. Incentive spirometry postop. (4) GERD (gastroesophageal reflux disease): Continue PPI. (5) Dyslipidemia: Continue rosuvastatin. (6) Hypothyroidism: Continue levothyroxine. (7) BPH (benign prostatic hyperplasia): Continue tamsulosin. Watch for urinary retention postop. (8) Leukocytosis: WBC 23,780 11/22. No apparent infection. Probably due to steroids received in ED 11/21. WBC down to 12,560 today. (9) DVT prophylaxis: Per Ortho protocol. (10) Encounter for consultation: Thank you for this consultation. We will follow the patient with you during their hospital stay. My cell # is [phone]. You can reach a member of the [facility] Medicine Team 02/02 via pager @ [phone]. Admission and Anticipated Discharge Date Admission Date: November 23, 2019 Subjective Recheck for medical management. Patient seen in their room around 1100. Surgery went well yesterday. LUE pain improved, but still has proximal weakness. Review of Systems: Constitutional- no fever. Cardiac- no chest pain. Pulmonary- no cough or SOB. GI- no nausea, vomiting, diarrhea, melena, hematochezia. - no urinary symptoms. Otherwise, as noted above. Physical Exam Constitutional: no acute distress Neck: cervical collar Respiratory: no respiratory distress Auscultation: lungs clear to auscultation bilaterally Cardiovascular: Rate/Rhythm: regular rate and regular rhythm Heart Sounds: no gallop, no murmur and no cardiac rub Vessels: no JVD Extremities: no calf tenderness and no edema Gastrointestinal (Abdomen): normal bowel sounds, soft, nontender, no hepatosplenomegaly Skin: no rashes, warm and dry Psychiatric: Orientation: alert and oriented x 3 Results & Data Results & Data ([facility]) Vital Signs (Past 12 Hours) Vital Signs Temp Pulse Resp BP Pulse Ox 11/25/19 10:06 37.0 C 79 18 153/72 H 95 11/25/19 09:39 37.0 C 79 18 153/72 H 95 11/25/19 05:45 36.7 C 75 12 164/73 H 93 11/25/19 03:45 36.8 C 76 12 158/73 H 94 11/25/19 03:15 75 16 94 11/25/19 01:45 37 C 76 12 164/79 H 93 11/24/19 23:45 36.8 C 66 16 164/76 H 94
[2019-11-25] MEDS ORDERED: POLYETHYLENE (MIRALAX) 17 GM PACK PO SCH (16:00)
[2019-11-26] MEDS ORDERED: bisacodyL 10 MG SUPP PR PRN (15:11)
== END 2019-11-25 14:20 | disposition home or self-care (01) | DRG 472 ==
LOC: 3E 16:21 → EDSTATUS 11-24 07:00 → 3E 11-24 13:55

== ENCOUNTER 2022-05-20 07:53 | Observation (INO) ==
--- NOTE | 2022-05-05 16:10 | PAT Medication Instructions ---
Medication Instructions Date of Service May 05, 2022 Home Medications Medication Instructions Recorded Nanci Villaseñor #1 ea 04/21/22 albuterol sulfate 90 mcg/actuation aerosol inhaler 1 puff inhalation Q6H PRN Wheezing and SOB ascorbic acid (vitamin C) 500 mg tablet 500 mg PO QAM aspirin 81 mg tablet,delayed release (Jamaal Low Dose Aspirin) 81 mg PO QAM cyanocobalamin (vitamin B-12) 1,000 mcg tablet 1,000 mcg PO QAM levothyroxine 25 mcg tablet 25 mcg PO DAILYBB lisinopril 5 mg tablet 5 mg PO QAM omeprazole 20 mg capsule,delayed release 20 mg PO QAM rosuvastatin 40 mg tablet 40 mg PO HS sildenafil 100 mg tablet 100 mg PO DIRECTED PRN Erectile Dysfunction tamsulosin 0.4 mg capsule 0.4 mg PO HS trazodone 50 mg tablet 25 mg PO HS docusate sodium 100 mg capsule (Colace) 100 mg PO BID hydroxyzine HCl 50 mg tablet 50 mg PO BID PRN Anxiety ASK your prescriber and surgeon aspirin 81 mg tablet,delayed release (Jamaal Low Dose Aspirin) 81 mg PO QAM STOP taking 24 hours before surgery sildenafil 100 mg tablet 100 mg PO DIRECTED PRN Erectile Dysfunction DO NOT take the morning of surgery ascorbic acid (vitamin C) 500 mg tablet 500 mg PO QAM cyanocobalamin (vitamin B-12) 1,000 mcg tablet 1,000 mcg PO QAM lisinopril 5 mg tablet 5 mg PO QAM docusate sodium 100 mg capsule (Colace) 100 mg PO BID hydroxyzine HCl 50 mg tablet 50 mg PO BID PRN Anxiety Take morning of surgery With a small sip of water, OTHERWISE NOTHING TO EAT OR DRINK AFTER MIDNIGHT: albuterol sulfate 90 mcg/actuation aerosol inhaler 1 puff inhalation Q6H PRN Wheezing and SOB (use if needed; please bring rescue inhaler with you to hospital day of surgery if possible) aspirin 81 mg tablet,delayed release (Jamaal Low Dose Aspirin) 81 mg PO QAM (continue as normal unless told otherwise by surgeon) levothyroxine 25 mcg tablet 25 mcg PO DAILYBB omeprazole 20 mg capsule,delayed release 20 mg PO QAM Take evening before surgery albuterol sulfate 90 mcg/actuation aerosol inhaler 1 puff inhalation Q6H PRN Wheezing and SOB (if needed) rosuvastatin 40 mg tablet 40 mg PO HS tamsulosin 0.4 mg capsule 0.4 mg PO HS trazodone 50 mg tablet 25 mg PO HS docusate sodium 100 mg capsule (Colace) 100 mg PO BID hydroxyzine HCl 50 mg tablet 50 mg PO BID PRN Anxiety (if needed) Other Notes If you have any questions please call us at [phone] or [phone] or [phone] or [phone]
--- NOTE | 2022-05-06 09:12 | Anesthesiology Consultation ---
Date of Service May 06, 2022 Assessment & Plan (1) Encounter for pre-operative examination: - awaiting pre-op cardiology evaluation. - Case discussed with Dr. Orosco including abnormal EKG and he advised patient should have pre-op cardiology evaluation. Pt aware, [place] preference. - Outpatient joint assessment: Patient is currently scheduled for inpatient pathway. If re-evaluated pending system levels during current pandemic/surgeon requests outpatient pathway, patient is NOT acceptable candidate for outpatient joint program from anesthesia standpoint. Chart Review Chart Review: Pending: Refer to Additional Notes / Consult section and Patient seen in Pre Admission Testing Teaching & Discussion Pre-Anesthesia Teaching/Discussion Notes: Instructed NPO after midnight before surgery, except medications with 15 cc of water. Medication instructions provided according to the PAT guidelines. History Surgery Operation Date: 05/20/22 10:40 Proposed Procedures p Left Total Knee Arthroplasty - Miguel Cutler MD Height/Weight Height: 5 ft 7 in Weight: 74.843 kg Allergies Allergy/AdvReac Type Severity Reaction Status Date / Time No Known Allergies Allergy Unverified 05/02/22 14:33 Medications Home Medications Medication Instructions Recorded Confirmed Last Taken albuterol sulfate 90 mcg/actuation 1 puff inhalation Q6H PRN Wheezing 07/17/19 05/02/22 12/07/19 aerosol inhaler and SOB ascorbic acid (vitamin C) 500 mg 500 mg PO QAM 07/17/19 05/02/22 12/07/19 tablet aspirin 81 mg tablet,delayed 81 mg PO QAM 07/17/19 05/02/22 12/07/19 release (Jamaal Low Dose Aspirin) cyanocobalamin (vitamin B-12) 1,000 mcg PO QAM 07/17/19 05/02/22 12/07/19 1,000 mcg tablet levothyroxine 25 mcg tablet 25 mcg PO DAILYBB 07/17/19 05/02/22 12/07/19 lisinopril 5 mg tablet 5 mg PO QAM 07/17/19 05/02/22 12/07/19 omeprazole 20 mg capsule,delayed 20 mg PO QAM 07/17/19 05/02/22 12/07/19 release rosuvastatin 40 mg tablet 40 mg PO HS 07/17/19 05/02/22 12/07/19 sildenafil 100 mg tablet 100 mg PO DIRECTED PRN Erectile 0105/02/22 12/07/19 Dysfunction tamsulosin 0.4 mg capsule 0.4 mg PO HS 07/17/19 05/02/22 12/07/19 trazodone 50 mg tablet 25 mg PO HS 07/17/19 05/02/22 12/07/19 docusate sodium 100 mg capsule 100 mg PO BID 11/22/19 05/02/22 12/07/19 (Colace) hydroxyzine HCl 50 mg tablet 50 mg PO BID PRN Anxiety 11/22/19 05/02/22 12/07/19 Wheeled Walker #1 ea 04/21/22 04/21/22 Unknown Dulera BID 05/06/22 Unknown Past Medical History Medical History (Updated 05/06/22 @ 09:17 by Marge Grullon PA-C) Anxiety Asthma controlled, stable per pt; last rescue inhaler use 1 week ago BPH (benign prostatic hyperplasia) Dyslipidemia GERD (gastroesophageal reflux disease) controlled, stable per pt HTN (hypertension) controlled, stable per pt Hypothyroidism Nerve damage left arm from -2019 Prostate cancer stage II; monitoring, checked twice per year Patient denies h/o stroke, seizures, heart attack, heart failure, DM, blood clots or blood transfusions. Exercise / Class Metabolic Activity III < 4 Walking/Shop/Light housework (denies CP or SOB with usual activities, no steps in home) Past Family History Family History Other Coronary heart disease Hypertension Past Surgical History Surgical History History of carpal tunnel surgery Hx of cervical spine surgery 2019 Past Anesthesia History No Hx of Anesthesia Complications and No Family Hx of Anesthesia Complications History of PONV No Hx of PONV and No Hx of Motion Sickness Social History Smoking Status: Never smoker Do You Dip or Chew Tobacco: No Hx Alcohol Use: Yes Alcohol type: beer alcohol intake frequency: a few times a week Hx Substance Use: No substance use type: does not use Review of Systems Patient denies chest pain, shortness of breath, dyspnea on exertion, snoring, witnessed apneas, fever, chills, cough, wheezing, or palpitations. Physical Exam Vital Signs Vitals BP 125/71 P 59 TEMP 97.8 SP02 96% on RA RESP 18 Physical Full cervical extension range of motion without pain TMD 3.5 finger breadths Mallampati Score 3 Dentition: intact, multiple chipped throughout, removable partial right upper front; denies or loose teeth Lungs: normal respiratory effort. Clear throughout to auscultation, no adventitious breath sounds Cardiac: regular rate and rhythm, no murmurs noted Carotid arteries: negative bruit bilat Lab Results Anesthesia Preop Results Results Anesthesia Widget: WBC 6.94 K/ul (4.8-10.8) 05/06/22 Hgb 12.6 g/dl (14.0-18.0) L 05/06/22 Hct 38.1 % (40.1-51.0) L 05/06/22 Plt 240 K/uL (130-400) 05/06/22 Na 139 mmol/L (136-145) 05/06/22 K 3.7 mmol/L (3.5-5.1) 05/06/22 Cl 106 mmol/L (98-107) 05/06/22 CO2 26 mmol/L (21-32) 05/06/22 BUN 20 mg/dl (6-23) 05/06/22 Creat 0.72 mg/dl (0.6-1.4) 05/06/22 Glucose Level 87 mg/dl (70-99(Fasting)) 05/06/22 PT 10.5 Seconds (9.0-12.0) 05/06/22 PTT 25.5 Seconds (21.0-31.0) 05/06/22 INR 1.0 (0.9-1.1) 05/06/22 Blood Type A Positive 05/06/22 Antibody Screen NEGATIVE 05/06/22 Testing Electrocardiogram Date: 05/06/22 Sinus bradycardia with 1st degree AV block, rate [address] and T wave abnormality Compared with 12/08/2019 ECG, ST now depressed in inferior leads T wave inversion now evident in inferior leads Chest X-Ray Date: 05/06/22 PA and lateral chest radiographs are compared to chest x-ray and chest CT dated 12/08/2019. The heart is mildly enlarged noting atherosclerotic calcification of the thoracic aorta. The pulmonary vasculature is noncongested. The lungs and pleural spaces are clear. There is no pneumothorax. The skeletal structures are osteopenic. The bony thorax appears intact. Fusion hardware is seen in the lower cervical region. IMPRESSION: No active disease in the chest. COVID-19 Risk Screen Screening Information COVID-19 Screen Date: 05/06/22 Exposure 21 Days Family/Household +COVID Last 21 Days: No Exposure 10 Days Any COVID Exposure Last 10 Days: No Symptoms Last 10 Days Experienced COVID Sx Last 10 Days: No + COVID 0-90 Days COVID + in Last 0-90 Days: No
[~2022-05-20 07:53] MED LIST: ACETAMINOPHEN 500 MG TAB PO SCH; BUPIVACAINE 0.25% 30 ML VIAL ONE; BUPIVACAINE 0.5 % 5 MG/1 ML PF 10ML VIAL ONE; BUPIVACAINE LIPOSOME/PF 266 MG, BUPIVACAINE/EPINEPHRINE 50 ML, SODIUM CHLORIDE 0.9% 30 ... INFIL SCH; CeleBREX 200 MG CAP PO SCH; DEXAMETHASONE SOD INJ 4 MG/ML VIAL ONE; EPINEPHrine INJ 1 MG/ML AMP ONE; FAMOTIDINE 20 MG TAB PO SCH; LR 500ML BOLUS, THEN 15ML/HR IV SCH; LR 60ML/HR IV SCH; METOCLOPRAMIDE HCL 10 MG TABLET PO SCH; TRANEXAMIC ACID 1,000 MG **IV Intra-op IV SCH; ceFAZolin 2000MG 2,000 MG/15 ML SYR IV SCH
--- NOTE | 2022-05-20 08:53 | History & Physical Bridge Note ---
Date of Service May 20, 2022 History & Physical Bridge Note I have examined the patient, reviewed the History & Physical and in the interval since the performance of the History & Physical I have noted the following changes of clinical significance: no changes noted
[2022-05-20] MEDS ORDERED: MIDAZOLAM HCL 1 MG/ML 2ML VIAL ONE (10:09)
[2022-05-20] MEDS ORDERED: fentaNYL citrate 100 MCG/2 ML VIAL ONE (10:09)
[2022-05-20] MEDS ORDERED: PROPOFOL IV EMULSION 10 MG/ML 20 ML VIAL IV ONE ×2 (10:14)
[2022-05-20] MEDS ORDERED: BUPIVACAINE 0.25% 30 ML VIAL ONE (11:00)
[2022-05-20] MEDS ORDERED: EPINEPHrine INJ 1 MG/ML AMP ONE (11:00)
[2022-05-20] MEDS ORDERED: SODIUM CHLORIDE 0.9% PF 50 ML VIAL ONE (11:00)
[2022-05-20] MEDS ORDERED: BUPIVACAINE LIPOSOME 1.3% 266 MG/20 ML VIAL ONE (11:00)
[2022-05-20] MEDS ORDERED: ePHEDrine sulfate 50 MG/ML AMP IV PRN (11:33)
[2022-05-20] MEDS ORDERED: ATROPINE SULFATE 0.1 MG/ML 10ML SYR IV PRN (11:33)
[2022-05-20] MEDS ORDERED: ONDANSETRON INJ 2 MG/ML 2 ML VIAL IV PRN ×2 (11:33→14:23)
[2022-05-20] MEDS ORDERED: fentaNYL citrate 100 MCG/2 ML VIAL IV PRN (11:33)
[2022-05-20] MEDS ORDERED: DEXAMETHASONE SOD INJ 4 MG/ML VIAL ONE (12:44)
[2022-05-20] MEDS ORDERED: ONDANSETRON INJ 2 MG/ML 2 ML VIAL ONE (12:44)
--- NOTE | 2022-05-20 13:11 | Operative Report ---
PG Post Operative Report Pre & Post Diagnosis Operation Date: 05/20/22 10:40 Pre-Op Diagnosis: Left Knee Dengenerative Joint Disease Post-Op Diagnosis: Left Knee Dengenerative Joint Disease I identified the patient and participated in the time-out.: Yes Procedure Operation Date: 05/20/22 10:40 Actual Procedures p Left Total Knee Arthroplasty(Left) - Miguel Cutler MD Surgeon Miguel Cutler MD Department Clinician Zacarias Lyon PA-C Estimated Blood Loss 50 Findings Consistent with Post-Op Diagnosis Operative findings revealed advanced left knee DJD. He had extensive grade 4 [id number] disease of the medial and patellofemoral compartments. He had a fixed varus deformity to his knee and about a 15 degree flexion contracture. Moderate-sized joint effusion. Fairly stiff knee in flexion also only about 90 degrees of knee flexion. Specimens Left knee sent for pathology. Drains None Anesthesia Type Spinal MAC Complications none Disposition Accompanied Patient To Recovery: No Indications Patient is 76-year-old gentleman is had a several year history of increasing left knee pain discomfort describes gotten worse over time. Failed conservative measures. He had a very stiff knee as well. X-rays show advanced left knee DJD. He elected proceed with surgical treatment. Description of Procedure Operative implants consist of: 1. Biomet Vanguard size 65 left posterior stabilized femoral component. 2. Biomet size 71 tibial tray. 3. 10 mm posterior stabilized polyethylene insert. 4. 31 x 8 all Paller patella. The patient was taken to the operating room, identified, placed on the operating table supine position protectors were properly padded. IV antibiotics arrived by anesthesia team. Spinal anesthetic and abductor canal block had been provided in the holding area. Martins catheter was placed in sterile fashion. A left thigh tent was then placed in the left lower extremities and prepped and draped in usual sterile fashion. The left leg was elevated exsanguinated with use of an Esmarch and the tourniquet was set at 300 mmHg. An anterior posterior left knee was then performed to longitudinal incision centered over the patella. Sharp dissection was carried through subcutaneous tissue down the extensor mechanism. A medial parapatellar arthrotomy incision was made. Some subperiosteal dissection was carried out medially. The fat pad was resected from Neath patella tendon. The lateral patellofemoral ligament was released. Patella subluxated laterally and the knee was flexed. The osteophytes were taken off distal femur. ACL and PCL were then released from distal femur and the tibia subluxated anteriorly. The external tibial alignment jig was then placed in the anterior face of the tibia and adjusted 14 mm medially. Proximal tibial cut was made removed by millimeter of bone from most deficient aspect medial tibial plateau. The tibia was then sized to a size 71. Attention drawn the femur. The distal femur examined the sharp drop with intramedullary canal was suction. A left 6 degree valgus cutting guide was placed. Distal femoral cutting block was pinned in place. Distal femoral cut was made to take an additional 3 mm bone off distal femur. The femur was then sized to a size 65. The AP cutting block was pinned parallel to the epicondylar axis which was 5 degrees of external rotation. Anterior cut, anterior chamfer, posterior cut, posterior chamfer cuts were made. The box cutting guide was placed in just slight lateral and the box cut was made. The knee was flexed. The remnants of the medial lateral menisci were excised. The osteophytes taken off the posterior aspect of femur. A trial femoral component was placed for the tibial tray was pinned in maximum external rotation and the drill and stem punch were used to create defect in proximal tibia for the tibial tray. The knee was then trialed and the 10 mm insert fit most appropriately. Attention drawn the patella. The patella was cleaned of all soft tissue. Patella thickness measured 23 mm in thickness was cut down to 14. Was sized to a size 31 patella. The lug holes were drilled for 31 patella. Lateral osteophytes removed. Patella button was placed. Knee was taken through range of motion patella tracked nicely with no thumbs test. Attention drawn to placing permanent components. Nupathe all trial components were removed. Bone plug was placed in the distal femur limit blood loss. Double batch Palacos G cement was mixed. A Biomet Vanguard size 65 left posterior stabilized femoral component, a size 71 tibial tray, 10 mm posterior stabilized polyethylene insert, and a 31 x 8 all Paller patella then cemented in place. Knee was brought out into full extension total cement hardened. Final cement check was then performed. Pericapsular tissues were injected with total 100 cc of combination of 20 cc of Exparel, 30 cc normal saline, 50 cc of quarter percent Marcaine with epinephrine. Patient did receive 1 g tranexamic acid. The tourniquet was then let down for final turn time of 57 minutes. Hemostasis assured use electrocautery. Extensor mechanism closed with combination 1 PDS suture #1 Vicryl suture in [id number] fashion. Extensor mechanism checked found to be intact and subcutaneous tissue then closed with 2 Dexon suture in a buried interrupted fashion skin was closed skin johana. Leg was then cleaned and dried a sterile dressing was Xeroform, 4 x 4's, sterile cast padding, Dalton bandage were applied. Patient then transferred to the [facility] very room in stable condition. Patient tolerated procedure well and there were no complications. Zacarias Lyon, my physician senior executive assistant, was present for the entire procedure. His assistance was essential and required for appropriate patient positioning, prepping and draping, surgical exposure, performing the technical details of the operation, placement the implants, closure of the wound, and placement of the sterile bandage. I attest to the content of the Intraoperative Record and any orders documented therein. Any exceptions are noted below.
--- NOTE | 2022-05-20 13:25 | XRay Report ---
XR knee LT 1 or 2V routine CLINICAL HISTORY: Postoperative evaluation. COMPARISON: Knee radiographs April 21, 2022. FINDINGS: Alignment of the left knee arthroplasty is anatomic. There is no periprosthetic fracture o r unexpected radiopaque foreign body. Skin johana are present. IMPRESSION: Expected findings following total left knee arthroplasty. ACT 112: Negative or not required by law. Electronically signed by: Porter Currie M.D. 05/20/2022 1:23 PM
[2022-05-20] MEDS ORDERED: METOCLOPRAMIDE HCL INJ 5 MG/ML 2 ML VIAL IV PRN (14:23)
[2022-05-20] MEDS ORDERED: ALBUTEROL HFA 8 GM INHALER INH PRN (14:23)
[2022-05-20] MEDS ORDERED: NALOXONE HCL 0.4 MG/1 ML VIAL/CARP IV PRN (14:23)
[2022-05-20] MEDS ORDERED: ALUMINUM/MAGNESIUM SUSP 30 ML UDC PO PRN (14:23)
[2022-05-20] MEDS ORDERED: MAGNESIUM HYDROXIDE SUSP 30 ML UDC PO PRN (14:23)
[2022-05-20] MEDS ORDERED: NON-FORMULARY MEDICATION (Sildenafil 100 mg Tablet) PO PRN (14:23)
[2022-05-20] MEDS ORDERED: bisacodyL 10 MG SUPP PR PRN (14:23)
[2022-05-20] MEDS: SODIUM CHLORIDE 0.9% 1000ML 1,000 ML IV SCH (14:50)
[2022-05-20] MEDS: KETOROLAC TROMETHAMINE 15 MG/ML VIAL IV SCH ×2 (15:35→19:57)
[2022-05-20] MEDS: ACETAMINOPHEN 500 MG TAB PO SCH ×2 (15:35→21:13)
--- NOTE | 2022-05-20 15:47 | Anesthesiology Progress Note ---
Date of Service May 20, 2022 Anesthesia Post Procedure Vital Signs Vital Signs: Temp Pulse Pulse Resp BP Pulse Ox O2 Del Method 05/20/22 15:33 58 L 16 169/84 H 97 Room Air 05/20/22 15:01 36.4 C L 59 L 14 169/80 H 96 Room Air 05/20/22 14:10 54 L 94 H 127/62 94 Room Air 05/20/22 13:55 36.5 C 55 L 25 H 130/62 93 Room Air 05/20/22 13:45 36.5 C 54 L 18 131/68 94 Room Air 05/20/22 13:35 56 L 22 118/63 94 Room Air 05/20/22 13:25 58 L 19 119/60 94 Room Air 05/20/22 13:15 62 18 110/57 L 99 Oxymask 05/20/22 13:09 36.3 C L 60 14 114/54 L 99 Oxymask 05/20/22 08:42 36.5 C 68 18 157/88 H 97 Room Air 05/20/22 08:42 Room Air O2 Flow Rate 05/20/22 15:33 05/20/22 15:01 05/20/22 14:10 05/20/22 13:55 05/20/22 13:45 05/20/22 13:35 05/20/22 13:25 05/20/22 13:15 4 05/20/22 13:09 7 05/20/22 08:42 05/20/22 08:42 Pain Intensity Right Knee: Pain Intensity: 0 Transfer of Care Handoff Completed per policy Notes Mental Status: alert / awake / arousable Patient Amnestic to Procedure: Yes Nausea / Vomiting: adequately controlled Pain: adequately controlled Airway Patency, RR, SpO2: stable & adequate BP & HR: stable & adequate Hydration State: stable & adequate Neuraxial Anesthesia: was administered and sensory block is resolving Anesthetic Complications: no major complications apparent and Pt Satisfied with anesthetic care
[2022-05-20] MEDS: oxyCODONE HCL IR 5 MG TAB (IMMEDIATE RELEASE) PO PRN (17:51)
[2022-05-20] MEDS: ceFAZolin 1000MG 1,000 MG/7.5 ML SYR IV SCH (18:17)
[2022-05-20] MEDS: HYDROmorphone INJ 0.5 MG/0.5 ML SYR IV PRN (18:31)
[2022-05-20] MEDS ORDERED: TRANEXAMIC ACID / 0.7% NACL 1,000 MG/100 ML BAG IV SCH (19:15)
[2022-05-20] MEDS: ASPIRIN 81 MG ECTAB PO SCH (19:57)
[2022-05-20] MEDS: DOCUSATE SODIUM 100 MG CAP PO SCH (19:59)
[2022-05-20] MEDS: DOCUSATE SODIUM/SENNA 50/8.6MG TAB PO SCH (19:59)
[2022-05-20] MEDS ORDERED: traZODone HCL 50 MG TAB PO SCH (21:00)
[2022-05-20] MEDS ORDERED: TAMSULOSIN HCL 0.4 MG CAP PO SCH (21:00)
[2022-05-20] MEDS ORDERED: DOCUSATE SODIUM 100 MG CAP PO SCH (21:00)
[2022-05-20] MEDS ORDERED: ROSUVASTATIN CALCIUM 20 MG TAB PO SCH (21:00)
[2022-05-20] MEDS ORDERED: SENNA 8.6 MG TAB PO SCH (21:00)
[2022-05-20] MEDS: hydrOXYzine HCl 25 MG TAB PO PRN (21:13)
[2022-05-21] MEDS: oxyCODONE HCL IR 5 MG TAB (IMMEDIATE RELEASE) PO PRN ×2 (00:17→07:48)
[2022-05-21] MEDS: SODIUM CHLORIDE 0.9% 1000ML 1,000 ML IV SCH (00:18)
[2022-05-21] MEDS: KETOROLAC TROMETHAMINE 15 MG/ML VIAL IV SCH ×2 (01:33→08:38)
[2022-05-21] MEDS: ceFAZolin 1000MG 1,000 MG/7.5 ML SYR IV SCH (03:10)
[2022-05-21] MEDS: HYDROmorphone INJ 0.5 MG/0.5 ML SYR IV PRN (04:25)
[2022-05-21] MEDS: ACETAMINOPHEN 500 MG TAB PO SCH (05:36)
[2022-05-21] MEDS ORDERED: LEVOTHYROXINE SODIUM 25 MCG TABLET PO SCH (06:30)
[2022-05-21 07:50] VITALS: BP 136/69; TEMP 97.8; O2SAT 94
[2022-05-21] MEDS ORDERED: dexAMETHasone 10 MG in SYRINGE 0 ML IV SCH (08:00)
[2022-05-21] MEDS: DOCUSATE SODIUM 100 MG CAP PO SCH (08:39)
[2022-05-21] MEDS: DOCUSATE SODIUM/SENNA 50/8.6MG TAB PO SCH (08:39)
[2022-05-21] MEDS: ASPIRIN 81 MG ECTAB PO SCH (08:39)
[2022-05-21] MEDS: hydrOXYzine HCl 25 MG TAB PO PRN (08:46)
[2022-05-21 08:47] LABS: Hematocrit (blood only) 33.1 % (40.1-51.0); Hemoglobin 11.3 g/dl (14.0-18.0); Mean Corpuscular Hemoglobin 30.1 pg (25.0-34.0); Mean Corpuscular Hgb Conc 34.1 g/dL (32.0-36.0); Mean Platelet Volume 9.6 fL (9.4-12.4); Platelet Count 265 K/uL (130-400); RDW Coefficient of Variation 13.4 % (11.5-14.5); RDW Standard Deviation 43.3 fL (36.4-46.3); Red Blood Count 3.76 M/uL (4.63-6.08); White Blood Count 15.31 K/ul (4.8-10.8)
[2022-05-21] MEDS ORDERED: lisinopril 20 MG TAB PO SCH (09:00)
[2022-05-21] MEDS ORDERED: ASCORBIC ACID 500 MG TAB PO SCH (09:00)
[2022-05-21] MEDS ORDERED: CYANOCOBALAMIN (B-12) 500 MCG TABLET PO SCH (09:00)
[2022-05-21] MEDS ORDERED: MULTIVITAMIN TAB PO SCH (09:00)
[2022-05-21] MEDS ORDERED: PANTOprazole 40 MG TAB PO SCH (09:00)
[2022-05-21 09:10] LABS: BUN Creatinine Ratio 23.8 (10-20); Calcium 8.2 mg/dl (8.5-10.1); Creatinine Clr Calc Pharmacy 69.9 ml/min; Est GFR (African American) 98.6 ml/min; Est GFR (Non-African American) 85.1 ml/min; Potassium 4.3 mmol/L (3.5-5.1)
[2022-05-21 11:41] VITALS: PULSE 74
--- NOTE | 2022-05-21 19:59 | Progress Notes ---
SUBJECTIVE: A 76-year-old gentleman postoperative day 1 from left knee replacement. He is doing ira te well. Pain has been controlled. Had a pretty good night. He is hoping to go home. OBJECTIVE: VITAL SIGNS: Temperature 36.6. Vital signs are stable. GENERAL: Shows a pleasant, elderly male. He is sitting up in bed and eating breakfast. Looks prett y good when I saw him this morning. LUNGS: Clear to auscultation. HEART: Regular rate and rhythm. ABDOMEN: Soft, nontender, nondistended. EXTREMITIES: Grossly neurovascularly intact except as follows: Examination of the left leg reveals the dressing clean, dry and intact. He can dorsiflex and plantar flex his foot appropriately. He is neurologically intact. LABORATORY DATA: Hemoglobin 11.3. Hematocrit 33.1. Electrolytes are stable. ASSESSMENT: A 76-year-old gentleman postoperative day 1 from left knee replacement, doing pretty wel l. Pain is controlled. He is neurologically intact. He is hoping to go home. PLAN: 1. DVT prophylaxis includes thigh-high TEDs, SCDs, and aspirin twice a day for 6 weeks. 2. PT, OT, weightbear as tolerated. Left total knee protocol. 3. Pain control, doing okay with current pain regimen. 4. Disposition: Plan to discharge to home with some home health if he does okay in therapy today. Job ID: [id number]
--- NOTE | 2022-05-25 06:55 | Discharge Summary ---
Date of Service May 25, 2022 Discharge Data Procedures Performed Operation Date: 05/20/22 10:40 Actual Procedures p Left Total Knee Arthroplasty(Left) - Miguel Cutler MD Hospital Course (1) Status post total left knee replacement: This is a 76 year old patient admitted on 05/20/22 and underwent total knee arthroplasty. He tolerated the procedure well and there were no complications. Transferred to the PACU post op and later to the orthopedic floor for further care. He was given ancef for antibiotic prophylaxis. He was also given SAUL stockings, SCDs, and aspirin for DVT prophylaxis. Hemoglobin, hematocrit, and vital signs were monitored during his hospital stay and remained stable. Did not require any blood transfusions. There were no complications during his hospital stay. By post op day #1 the patient was tolerating a regular diet, pain was reasonably controlled with oral pain medicine, and he was participating in physical therapy. On post op day #1 the patient was discharged home and set up with home health care. He was given printed discharge instructions including prescriptions for extra strength tylenol, aspirin, ketorolac, zofran, senokot, and oxycodone. Continue physical therapy, weight bearing as tolerated. Continue SAUL stockings. Follow up approximately 2 weeks post op or sooner if there are problems or concerns. Coding Level of Care Code None Diagnoses Status post total left knee replacement Z96.652
== END 2022-05-21 13:52 | disposition home health service (06) ==
LOC: 3W 07:53 → ASU 07:53

== ENCOUNTER 2022-09-23 10:13 | Observation (INO) ==
--- NOTE | 2022-09-16 13:10 | Anesthesiology Consultation ---
Date of Service September 16, 2022 Assessment & Plan (1) Encounter for pre-operative examination: Plan - potential difficult intubation: s/p cervical spine surgery. - cardiology 05/09/22 [place]: "...Hypertension, Dyslipidemia, GERD, Hypothyroidism, Prostate Cancer, Cervical Spinal Stenosis with Myelopathy, Asthma, and Osteoarthritis who presents today for Preoperative Cardiac Evaluation. He is scheduled undergo a Left TKA with Dr. Cutler on 05/20/22. Patient was referred because of an Abnormal Preoperative EKG 05/06/22 showing sinus bradycardia at 54 bpm with 1st degree AV block, ST segment depression and T-wave inversion in the inferior leads. When compared to tracing 12/08/2019 -- ST and T-wave abnormalities are new. Patient denies any prior cardiac history or prior cardiac events. He has stress test several years ago which was unremarkable. Patient's risk factors include age, gender, hypertension, and dyslipidemia. Patient specifically denies any history of coronary artery disease, myocardial infarction, CHF, rheumatic fever, heart murmurs, or abnormal heart rhythms...abnormal EKG and various things that can cause these abnormalities on an EKG -- most commonly LVH. In ordered to further evaluate, we ordered an Echocardiogram to assess his cardiac structure and function, LV wall thickness, etc. Patient agrees to proceed with an Echocardiogram. Provided that the patient has normal LV systolic function and based on his functional status without limiting cardiopulmonary -- patient will be considered an acceptable surgical risk to proceed with surgery as scheduled. There is no need for further ischemic workup at this time..." - Outpatient joint assessment: Patient is currently scheduled for inpatient pathway. If re-evaluated pending system levels during current pandemic/surgeon requests outpatient pathway, patient is not acceptable candidate for outpatient joint program from anesthesia standpoint. - COVID screening: Per manager of selection and assessment on 09/16/2022: Travel screen negative, no known COVID-19 positive contacts or current COVID-19 related symptoms in past 2 weeks. To surgeon's discretion if preop COVID testing is needed. Chart Review Chart Review: Acceptable Risk for Surgery and Patient NOT seen in Pre Admission Testing History Surgery Operation Date: 09/23/22 12:55 Proposed Procedures p Right Total Knee Arthroplasty - Miguel Cutler MD Height/Weight Height: 5 ft 7 in Weight: 77.111 kg Allergies Allergy/AdvReac Type Severity Reaction Status Date / Time No Known Allergies Allergy Unverified 09/16/22 12:21 Medications Home Medications Medication Instructions Recorded Confirmed Last Taken albuterol sulfate 90 mcg/actuation 1 puff inhalation Q6H PRN Wheezing 07/17/19 09/16/22 05/16/22 10:30 aerosol inhaler and SOB ascorbic acid (vitamin C) 500 mg 500 mg PO QAM 07/17/19 09/16/22 05/19/22 07:30 tablet cyanocobalamin (vitamin B-12) 1,000 mcg PO QAM 07/17/19 09/16/22 05/19/22 07:30 1,000 mcg tablet levothyroxine 25 mcg tablet 25 mcg PO DAILYBB 07/17/19 09/16/22 05/19/22 07:30 omeprazole 20 mg capsule,delayed 20 mg PO QAM 07/17/19 09/16/22 05/19/22 07:30 release rosuvastatin 40 mg tablet 40 mg PO HS 07/17/19 09/16/22 05/19/22 07:30 sildenafil 100 mg tablet 100 mg PO DIRECTED PRN Erectile 07/17/19 09/16/22 04/29/22 21:00 Dysfunction tamsulosin 0.4 mg capsule 0.4 mg PO HS 07/17/19 09/16/22 05/19/22 21:00 trazodone 50 mg tablet 25 mg PO HS 07/17/19 09/16/22 05/19/22 21:00 docusate sodium 100 mg capsule 100 mg PO BID 11/22/19 09/16/22 05/19/22 21:00 (Colace) hydroxyzine HCl 50 mg tablet 50 mg PO BID PRN Anxiety 11/22/19 09/16/22 05/19/22 21:00 Wheeled Walker #1 ea 04/21/22 07/17/22 Unknown Dulera 1 puff inhalation BID 05/06/22 09/16/22 Unknown lisinopril 20 mg tablet 20 mg PO DAILY #30 tabs 05/14/22 09/16/22 05/19/22 07:30 acetaminophen 500 mg capsule 1,000 mg PO TID Pain 30 days #180 05/19/22 09/16/22 Unknown caps aspirin 81 mg tablet,delayed 81 mg PO BID 45 days #90 tabs 05/19/22 09/16/22 Unknown release (Jamaal Low Dose Aspirin) ondansetron HCl 4 mg tablet 4 mg PO Q6 PRN nausea #20 tabs 05/19/22 09/16/22 Unknown sennosides 8.6 mg-docusate sodium 1 tab-cap PO BID 14 days #28 tabs 05/19/22 09/16/22 Unknown 50 mg tablet (Senokot-S) Past Medical History Medical History Anxiety Asthma controlled, stable per pt; last rescue inhaler use 1 week ago BPH (benign prostatic hyperplasia) Dyslipidemia GERD (gastroesophageal reflux disease) controlled, stable per pt HTN (hypertension) controlled, stable per pt Hypothyroidism Nerve damage left arm from -2019 Prostate cancer stage II; monitoring, checked twice per year Past Family History Family History Other Coronary heart disease Hypertension Past Surgical History Surgical History (Updated 09/16/22 @ 13:02 by Marge Grullon PA-C) History of carpal tunnel surgery History of cataract surgery BL - most recent 09/04/22. History of left knee replacement 05/20/22 [facility] SAB at L2-L3 1 attempt + PNB. Hx of cervical spine surgery C4-6 11/24/1920 Grade 3 view, glidescope 3, ETT 8. Social History Smoking Status: Never smoker Do You Dip or Chew Tobacco: No Hx Alcohol Use: Yes Alcohol type: beer alcohol intake frequency: a few times a week Hx Substance Use: No substance use type: does not use Lab Results Anesthesia Preop Results Results Anesthesia Widget: WBC 7.89 K/ul (4.8-10.8) 09/01/22 Hgb 12.4 g/dl (14.0-18.0) L 09/01/22 Hct 37.5 % (42.0-52.0) L 09/01/22 Plt 259 K/uL (130-400) 09/01/22 Na 139 mmol/L (136-145) 09/01/22 K 4.0 mmol/L (3.5-5.1) 09/01/22 Cl 106 mmol/L (98-107) 09/01/22 CO2 27 mmol/L (21-32) 09/01/22 BUN 16 mg/dl (6-23) 09/01/22 Creat 0.72 mg/dl (0.6-1.4) 09/01/22 Glucose Level 144 mg/dl (70-99(Fasting)) H 09/01/22 PT 10.7 Seconds (9.0-12.0) 09/01/22 PTT 25.7 Seconds (21.0-31.0) 09/01/22 INR 1.0 (0.9-1.1) 09/01/22 Blood Type A Positive 09/01/22 Antibody Screen NEGATIVE 09/01/22 Testing Laboratory Results Blood Type A Positive 09/01/22 10:25 Antibody Screen NEGATIVE 09/01/22 10:25 Electrocardiogram Date: 05/06/22 Sinus bradycardia with 1st degree AV block, rate [address] and T wave abnormality Chest X-Ray Date: 05/06/22 The heart is mildly enlarged noting atherosclerotic calcification of the thoracic aorta. The pulmonary vasculature is non-congested. The lungs and pleural spaces are clear. There is no pneumothorax. The skeletal structures are osteopenic. The bony thorax appears intact. Fusion hardware is seen in the lower cervical region. IMPRESSION: No active disease in the chest. Echocardiogram Date: 05/13/22 EF 65-70% Normal LV wall motion Moderate cLVH Mild mitral regurgitation LA mildly dilated
--- NOTE | 2022-09-19 09:20 | History and Physical Report ---
DATE OF ADMISSION: 09/23/2022 CHIEF COMPLAINT: Persistent right knee pain and discomfort. HISTORY OF PRESENT ILLNESS: The patient is a 76-year-old gentleman who now presents for surgical treatment of his right knee. He has got a long history of knee problems and had his left knee replaced in May of last year. He has done well from this. He continues to be limited by right knee pain and discomfort. He has got global pain. The more he is up and on it, the more it hurts. Limps more as the day goes on. He has been through extensive conservative treatment through the [place], which has become less successful. Happy with the left knee, would like to have his right knee fixed. PAST MEDICAL HISTORY: 1. Arthritis. 2. Hypothyroidism. 3. Depression. 4. Elevated cholesterol. 5. Hypertension. 6. Prostate cancer. 7. Asthma. PAST SURGICAL HISTORY: Includes: 1. Carpal tunnel release. 2. Cyst removal. 3. Neck surgery by Dr. Faria. 4. Left knee replacement done on 05/20/2022. ALLERGIES: POLLEN. CURRENT MEDICATIONS: Include: 1. Albuterol. 2. Vitamin C. 3. Aspirin. 4. inhaler. 5. Vitamin B12. 6. Colace. 7. Gabapentin. 8. Hydrocodone. 9. Hydroxyzine. 10. Levothyroxine. 11. Lisinopril. 12. Omeprazole. 13. Oxybutynin. 14. Rosuvastatin. 15. Sildenafil. 16. Tamsulosin. 17. Trazodone. SOCIAL HISTORY: A 76-year-old male from [place]. He is single. Lives with his girlfriend. One drink per week. Does not smoke. FAMILY HISTORY: No colon cancer, diabetes or heart disease. REVIEW OF SYSTEMS: Negative for diabetes. No chest pain or shortness of breath. No history of DVT or PE. PHYSICAL EXAMINATION: GENERAL: Shows a healthy, pleasant, elderly male. Looks to be in pretty good health. HEENT: Benign. NECK: Supple. No lymphadenopathy. LUNGS: Clear to auscultation. HEART: Regular rate and rhythm. ABDOMEN: Soft, nontender, nondistended. EXTREMITIES: Grossly neurovascularly intact except as follows: Examination of the right knee reveals patient with a fixed varus deformity at about 10 degrees. Range of motion about 10-15 degrees short of full extension to 110-115 degrees of flexion. Small knee effusion. No pain with hip motion. Examination of the left knee reveals a well-healed incision. Minimal swelling. Range of motion is 5-120. No instability. X-RAYS: X-rays of the right knee from previously are reviewed. It shows advanced right knee DJD. Complete loss of the medial joint space. He has got chondrocalcinosis. ASSESSMENT: A 76-year-old gentleman status post left knee replacement, with persistent right knee pain and discomfort. He has failed conservative treatment and would like to have his right knee replaced. PLAN: We will take him to the operating room and do right total knee replacement. The risks and benefits of this procedure were explained to the patient and include, but not limited to DVT, PE, , infection, neurological injury, vascular injury, bleeding problem, pain, limited range of motion, stiffness, failure to relieve his symptoms, incomplete relief of symptoms, need for further surgery in the future, etc. The patient understands and desires to proceed. Informed consent was obtained. He is planning on staying in the hospital overnight and planning to be discharged to home with some home health and his girlfriend is available to assist in his care. Job ID: [id number] [facility]
[~2022-09-23 10:13] MED LIST changes: -BUPIVACAINE 0.25% 30 ML VIAL ONE; -BUPIVACAINE LIPOSOME/PF 266 MG, BUPIVACAINE/EPINEPHRINE 50 ML, SODIUM CHLORIDE 0.9% 30 ... INFIL SCH; +BUPIVACAINE LIPOSOME/PF 266 MG, BUPIVACAINE/EPINEPHRINE 50 ML, SODIUM CHLORIDE 0.9% PF ... INFIL SCH; -DEXAMETHASONE SOD INJ 4 MG/ML VIAL ONE; -EPINEPHrine INJ 1 MG/ML AMP ONE; +ROPIVACAINE 0.5% 5 MG/ML 30 ML VIAL ONE
--- NOTE | 2022-09-23 10:53 | History & Physical Bridge Note ---
Date of Service September 23, 2022 History & Physical Bridge Note I have examined the patient, reviewed the History & Physical and in the interval since the performance of the History & Physical I have noted the following changes of clinical significance: no changes noted
[2022-09-23] MEDS ORDERED: PROPOFOL IV EMULSION 10 MG/ML 20 ML VIAL IV ONE (12:05)
[2022-09-23] MEDS ORDERED: MIDAZOLAM HCL 1 MG/ML 2ML VIAL ONE (12:05)
[2022-09-23] MEDS ORDERED: DEXAMETHASONE SOD INJ 4 MG/ML VIAL ONE (12:06)
[2022-09-23] MEDS ORDERED: KETOROLAC 30 MG/ML VIAL ONE (12:06)
[2022-09-23] MEDS ORDERED: ePHEDrine sulfate 50 MG/ML AMP IV PRN (12:46)
[2022-09-23] MEDS ORDERED: fentaNYL citrate PF 100 MCG/2 ML VIAL IV PRN (12:46)
[2022-09-23] MEDS ORDERED: ATROPINE SULFATE 0.1 MG/ML 10ML SYR IV PRN (12:46)
[2022-09-23] MEDS ORDERED: HYDROmorphone INJ 2 MG/ML SYR/VIAL IV PRN (12:46)
[2022-09-23] MEDS ORDERED: ONDANSETRON INJ 2 MG/ML 2 ML VIAL IV PRN ×2 (12:46→15:47)
[2022-09-23] MEDS ORDERED: BUPIVACAINE/EPINEPHRINE 0.25% 1:200,000 30 ML VIAL ONE (12:50)
[2022-09-23] MEDS ORDERED: SODIUM CHLORIDE 0.9% PF 50 ML VIAL ONE (12:50)
[2022-09-23] MEDS ORDERED: BUPIVACAINE LIPOSOME 1.3% 266 MG/20 ML VIAL ONE (12:51)
--- NOTE | 2022-09-23 15:01 | Operative Report ---
PG Post Operative Report Pre & Post Diagnosis Operation Date: 09/23/22 12:30 Pre-Op Diagnosis: Right Knee Degenerative Joint Disease Post-Op Diagnosis: Right Knee Degenerative Joint Disease I identified the patient and participated in the time-out.: Yes Procedure Operation Date: 09/23/22 12:30 Actual Procedures p Right Total Knee Arthroplasty(Right) - Miguel Cutler MD Surgeon Miguel Cutler MD Building Materials Sales Attendant Zacarias Lyon PA-C Estimated Blood Loss 50 Findings Consistent with Post-Op Diagnosis Operative findings real advanced right knee DJD. He had extensive and diffuse grade 4 changes of the medial and patellofemoral compartments. Moderate-sized joint effusion. He had a 10 to 15 degree flexion contracture. Specimens Right knee sent for pathology. Anesthesia Type Spinal MAC Complications none Disposition Accompanied Patient To Recovery: No Indications Patient is a 76-year-old gentleman said a long history of bilateral knee pain discomfort describes gotten worse over time. Been to extensive conservative care which has become less successful over time. Did he had his left knee replaced back in May of last year and is done well from this. He continued be limited by right knee pain. Elected proceed with right total knee arthroplasty. Description of Procedure Operative implants consist of: 1 Biomet Vanguard size 65 right posterior stabilized femoral component. 2. Biomet size 71 tibial tray. 3. 12 mm posterior stabilized polyethylene insert. 4. 31 x 8 all poly patella. The patient was taken the operating, identified, placed on the operating table supine position protectors were properly padded. IV antibiotics arrived by anesthesia team. Spinal anesthetic and abductor canal block had been provided in the holding area. A Martins catheter was placed in sterile fashion. Right thigh high tourniquet was then placed in the right lower extremities then prepped and draped in usual sterile fashion. The right leg was then elevated and exsanguinated with use of an Esmarch and the tourniquet was set at 300 mmHg. An anterior process of the right knee was then performed through a longitudinal incision centered over the patella. Sharp dissection was carried through subcutaneous tissues down the extensor mechanism. A medial parapatellar arthrotomy incision was made. Some subperiosteal dissection was carried out medially. The fat pad was resected from Neath patella tendon. Lateral patellofemoral ligament was released. The patella was subluxated laterally and the knee was flexed. The osteophytes taken off distal femur P the ACL and PCL were then released from distal femur the tibia subluxated anteriorly. The external tibial alignment jig was then placed in the interface the tibia and adjusted 14 mm medially. Proximal tibial cut was made remove about a millimeter or 2 of bone from the most deficient aspect medial tibial plateau. Tibia sized to a size 71. Attention drawn the femur. The distal femur was then with a sharp drill. Intramedullary canal was suction. A right 6 degree valgus cutting guide was placed. Distal femoral cutting block was pinned in place. Distal femoral cut was made to take an additional 3 mm of bone off distal femur. The femur was then sized to a size 65. The AP cutting block was pinned parallel to the epicondylar axis which was 5 degrees of external rotation. The anterior cut, anterior chamfer, posterior cut, posterior chamfer cuts were made. The box cutting guide was placed in just slight lateral and the box cut was made. The knee was flexed. The remnants of the medial and lateral menisci were excised. The osteophyte taken off the posterior aspect the femur. A trial femoral component was placed. The tibial tray was pinned in maximum external rotation and the drill and stem punch used to create defect in proximal tibia for the tibial tray. Knee was then trialed and the 12 mm insert fit most appropriately. Attention drawn the patella. The patella was cleaned of all soft tissues. Patella thickness measured 24 mm in thickness. Was cut down to 15. Was sized to a size 31 patella. The lug holes were drilled for the 31 patella. The lateral osteophyte was removed. Patella button was placed. Knee was taken through range of motion patella tracked nicely with no thumbs test. Attention drawn to placing permanent components. All trial components were removed. Bone plug was placed in the distal femur limit blood loss. Double batch Palacos G cement was mixed. A Biomet Vanguard size 65 right posterior stabilized femoral component, size 71 tibial tray, 12 mm posterior stabilized polyethylene insert, and a 31 x 8 all Paller patella were then cemented in place. Knee was brought out into full extension till cement hardened. Final cement check was then performed. Pericapsular tissues were injected with total 100 cc of combination of 20 cc of Exparel, 30 cc normal saline, 50 cc of quarter percent Marcaine with epinephrine. The tourniquet was then let down for final tourniquet time 55 minutes. Hemostasis assured use electrocautery. The extensor mechanism then closed with combination 1 PDS suture #1 Vicryl suture in a [id number] fashion. Extensor mechanism checked found to be intact with subcutaneous tissue then closed with 2 Dexon suture in buried interrupted fashion skin was closed skin johana. Leg was then cleaned and dried and a sterile dressing composed of Xeroform, 4 x 4's, sterile cast padding, Dalton bandage were applied. Patient then transferred to the recovery room in stable condition. Patient tolerated procedure well and there are no complications. Zacarias Lyon, my physician logging assistant, was present for the entire procedure. His assistance was essential and required for appropriate patient positioning, prepping and draping, surgical exposure, performing the technical details of the operation, placement the implants, closure of the wound, and placement of the sterile bandage. I attest to the content of the Intraoperative Record and any orders documented therein. Any exceptions are noted below.
--- NOTE | 2022-09-23 15:15 | XRay Report ---
RIGHT KNEE 2 VIEWS History: Right total knee arthroplasty. Degenerative arthritis. Postop. FINDINGS: The patient is status post a right total knee arthroplasty. The hardware is intact. No frac ture or dislocation. Skin johana are in place. IMPRESSION: Right total knee arthroplasty. No evidence for hardware complication. ACT 112: Negative or not required by law. Electronically signed by: Vladimir Figueroa M.D. 09/23/2022 3:13 PM
--- NOTE | 2022-09-23 15:29 | Anesthesiology Progress Note ---
Date of Service September 23, 2022 Anesthesia Post Procedure Vital Signs Vital Signs: Temp Pulse Pulse Resp BP BP Pulse Ox 09/23/22 15:15 60 17 126/64 96 09/23/22 15:05 59 L 17 116/53 L 99 09/23/22 14:55 36.4 C L 63 16 111/55 L 97 09/23/22 10:59 36.9 C 68 20 156/79 H 97 09/23/22 10:59 O2 Del Method O2 Flow Rate 09/23/22 15:15 Room Air 09/23/22 15:05 Oxymask 8 09/23/22 14:55 Oxymask 8 09/23/22 10:59 Room Air 09/23/22 10:59 Room Air Transfer of Care Handoff Completed per policy Notes Mental Status: alert / awake / arousable Patient Amnestic to Procedure: Yes Nausea / Vomiting: adequately controlled Pain: adequately controlled Airway Patency, RR, SpO2: stable & adequate BP & HR: stable & adequate Hydration State: stable & adequate Neuraxial Anesthesia: was administered and sensory block is resolving Anesthetic Complications: no major complications apparent and Pt Satisfied with anesthetic care
[2022-09-23] MEDS ORDERED: ALUMINUM/MAGNESIUM SUSP 30 ML UDC PO PRN (15:47)
[2022-09-23] MEDS ORDERED: bisacodyL 10 MG SUPP PR PRN (15:47)
[2022-09-23] MEDS ORDERED: NON-FORMULARY MEDICATION (Sildenafil 100 mg Tablet) PO PRN (15:47)
[2022-09-23] MEDS ORDERED: HYDROmorphone INJ 0.5 MG/0.5 ML SYR IV PRN (15:47)
[2022-09-23] MEDS ORDERED: HYDROCODONE/ACETAMOPHEN 5/325MG TAB PO PRN (15:47)
[2022-09-23] MEDS ORDERED: hydrOXYzine HCl 25 MG TAB PO PRN (15:47)
[2022-09-23] MEDS ORDERED: NALOXONE HCL 0.4 MG/1 ML VIAL/CARP IV PRN (15:47)
[2022-09-23] MEDS ORDERED: ALBUTEROL HFA 8 GM INHALER INH PRN (15:47)
[2022-09-23] MEDS ORDERED: METOCLOPRAMIDE HCL INJ 5 MG/ML 2 ML VIAL IV PRN (15:47)
[2022-09-23] MEDS ORDERED: MAGNESIUM HYDROXIDE SUSP 30 ML UDC PO PRN (15:47)
[2022-09-23] MEDS: KETOROLAC TROMETHAMINE 15 MG/ML VIAL IV SCH ×2 (17:00→23:37)
[2022-09-23] MEDS: SODIUM CHLORIDE 0.9% 1000ML 1,000 ML IV SCH (17:00)
[2022-09-23] MEDS: DOCUSATE SODIUM/SENNA 50/8.6MG TAB PO SCH (20:24)
[2022-09-23] MEDS: ceFAZolin 1000MG 1,000 MG/7.5 ML SYR IV SCH (20:28)
[2022-09-23] MEDS: ASPIRIN 81 MG ECTAB PO SCH (20:28)
[2022-09-23] MEDS: ACETAMINOPHEN 500 MG TAB PO SCH (20:29)
[2022-09-23] MEDS: DOCUSATE SODIUM 100 MG CAP PO SCH (20:29)
[2022-09-23] MEDS ORDERED: TRANEXAMIC ACID / 0.7% NACL 1,000 MG/100 ML BAG IV SCH (21:00)
[2022-09-23] MEDS ORDERED: SENNA 8.6 MG TAB PO SCH (21:00)
[2022-09-23] MEDS ORDERED: ROSUVASTATIN CALCIUM 20 MG TAB PO SCH (21:00)
[2022-09-23] MEDS ORDERED: TAMSULOSIN HCL 0.4 MG CAP PO SCH (21:00)
[2022-09-23] MEDS ORDERED: DOCUSATE SODIUM 100 MG CAP PO SCH (21:00)
[2022-09-23] MEDS ORDERED: traZODone HCL 50 MG TAB PO SCH (21:00)
[2022-09-24] MEDS: SODIUM CHLORIDE 0.9% 1000ML 1,000 ML IV SCH (03:33)
[2022-09-24] MEDS: KETOROLAC TROMETHAMINE 15 MG/ML VIAL IV SCH ×2 (03:40→11:05)
[2022-09-24] MEDS: ceFAZolin 1000MG 1,000 MG/7.5 ML SYR IV SCH (04:13)
[2022-09-24] MEDS ORDERED: LEVOTHYROXINE SODIUM 25 MCG TABLET PO SCH (06:30)
[2022-09-24] MEDS ORDERED: dexAMETHasone 10 MG in SYRINGE 0 ML IV SCH (08:00)
[2022-09-24] MEDS: DOCUSATE SODIUM 100 MG CAP PO SCH (08:26)
[2022-09-24] MEDS: ACETAMINOPHEN 500 MG TAB PO SCH ×2 (08:26→15:47)
[2022-09-24 08:27] LABS: Hemoglobin 10.3 g/dl (14.0-18.0); Mean Corpuscular Hemoglobin 29.2 pg (25.0-34.0); Mean Corpuscular Hgb Conc 33.2 g/dL (32.0-36.0); Mean Corpuscular Volume 87.8 fL (80.0-100.0); Mean Platelet Volume 9.8 fL (9.4-12.4); Platelet Count 263 K/uL (130-400); RDW Coefficient of Variation 13.5 % (11.5-14.5); RDW Standard Deviation 43.4 fL (36.4-46.3); Red Blood Count 3.53 M/uL (4.70-6.10); White Blood Count 16.53 K/ul (4.8-10.8)
[2022-09-24] MEDS: DOCUSATE SODIUM/SENNA 50/8.6MG TAB PO SCH (08:27)
[2022-09-24] MEDS: ASPIRIN 81 MG ECTAB PO SCH (08:27)
[2022-09-24 08:36] LABS: BUN Creatinine Ratio 17.6 (10-20); Calcium 8.1 mg/dl (8.5-10.1); Creatinine Clr Calc Pharmacy 64.6 ml/min; Est GFR (African American) 94.5 ml/min; Est GFR (Non-African American) 81.6 ml/min; Potassium 4.1 mmol/L (3.5-5.1)
[2022-09-24] MEDS ORDERED: ASCORBIC ACID 500 MG TAB PO SCH (09:00)
[2022-09-24] MEDS ORDERED: FLUTICASONE/VILANTEROL 100/25MCG 14 PUFFS/INHALER INH SCH (09:00)
[2022-09-24] MEDS ORDERED: MULTIVITAMIN TAB PO SCH (09:00)
[2022-09-24] MEDS ORDERED: lisinopril 20 MG TAB PO SCH (09:00)
[2022-09-24] MEDS ORDERED: CYANOCOBALAMIN (B-12) 500 MCG TABLET PO SCH (09:00)
[2022-09-24] MEDS ORDERED: PANTOprazole 40 MG TAB PO SCH (09:00)
--- NOTE | 2022-09-24 15:58 | Progress Notes ---
DATE OF SERVICE: 09/24/2022. SUBJECTIVE: A 76-year-old gentleman, postoperative day 1 from a right knee replacement. He is doing well. Therapy went well. His pain is controlled. Hoping to go home. OBJECTIVE: VITAL SIGNS: Temperature 37.1. Vital signs are stable. GENERAL: Shows a pleasant middle-aged male. He is sitting up in bedside chair, looks comfortable. LUNGS: Clear to auscultation. HEART: Regular rate and rhythm. ABDOMEN: Soft, nontender, nondistended. EXTREMITIES: Grossly neurovascularly intact except as follows. Examination of the right knee and leg reveals the dressing to be clean, dry and intact. His leg is w ell aligned. He can dorsiflex and plantarflex his foot appropriately. He is neurologically intact. LABORATORY DATA: Hemoglobin 10.3. Hematocrit 31.0. Electrolytes are stable. ASSESSMENT: A 76-year-old gentleman, postoperative day 1 from a right knee replacement, doing pretty well. Pain is controlled. He is neurologically intact. Therapy went well. He is hoping to go [facility]. PLAN: 1. DVT prophylaxis includes thigh-high TEDs, SCDs, and aspirin twice a day. 2. PT/OT, weightbear as tolerated. Right total knee protocol. 3. Pain control, doing okay with current pain regimen. 4. Disposition: Plan to discharge to home with some home health later today. Job ID: [id number]
== END 2022-09-24 16:53 | disposition home health service (06) ==
LOC: 3W 10:13 → ASU 10:13